=== PATIENT | female | born 1935 | race Caucasian/White ===

== ENCOUNTER 2017-03-24 22:59 | Emergency (ER) | payer MEDICARE, OTHER ==
[~2017-03-24] VITALS: Ht 152.4 cm; Wt 61.0 kg
[~2017-03-24 22:59] MED LIST: ALBU0.63 NEB; ALBUAER3 INH; ATEN25TA PO; BECL0.07 INH; CARA1SUS3 PO; CARB25TA12 PO; DOMPERIDONE PO; FOLI5CAP PO; FURO20TA PO; IPRASOL INH; LEVO50TA4 PO; LYRI100C PO; MECL25CH CHEW; MOTILIUM 10 MG PO; NITR1SUB3 SL; ONDA4TAB7 SL; POTA10TA2 PO; REGL5TAB PO; SUCR1TAB PO; TEMA15CA PO; TRAM50TA PO; WARF4TAB51 PO; ZOCO40TA PO
[2017-03-24 23:17] VITALS: BP 174/82; PULSE 68; RESP 16; TEMP 97.7; O2SAT 97
[2017-03-25] MEDS ORDERED: FOLI400T PO (01:19)
[2017-03-25] MEDS ORDERED: MECL-62 PO (01:19)
[2017-03-25] MEDS ORDERED: SODIUM CHLORIDE 0.9% FLUSH 10 ML FLUSH IV FLUSH PRN (01:30)
[2017-03-25 02:45] LABS: BLOOD, URINE LARGE (NEG); GLUCOSE,URINE NEG (NEG); KETONE, URINE NEG (NEG); NITRITE,URINE NEG (NEG); PH, URINE 6.5 (5.0-8.5)
[2017-03-25 02:54] LABS: RBC, URINE 15-19 /hpf (0-3); SQUAMOUS EPITHELIAL CELL URINE 0-5 /hpf (0-5); URINE COLOR YELLOW (YELLW/STRAW)
[2017-03-25 02:55] LABS: BACTERIA, URINE OCC /hpf; COMMENT (UR) CULT NOT INDICATED; CULTURE IF INDICATED CULT NOT INDICATED
[2017-03-25 03:04] LABS: AUTOMATED NEUTROPHIL # 4.9 TH/MM3 (1.8-7.7); BASOPHIL # 0.1 TH/MM3 (0-0.2); BASOPHIL % 2.2 % (0.0-2.0); EOSINOPHIL # 0.1 TH/MM3 (0-0.4); EOSINOPHIL % 1.7 % (0.0-4.0); HEMATOCRIT 35.3 % (35.0-46.0); HEMO FLAGS DIFF FINAL; LYMPH % 10.4 % (9.0-44.0); LYMPHOCYTE # 0.7 TH/MM3 (1.0-4.8); MEAN CELL VOLUME 97.8 FL (80.0-100.0); MEAN CORPUSCULAR HEMOGLOBIN 33.3 PG (27.0-34.0); MEAN CORPUSCULAR HGB CONC 34.1 % (32.0-36.0); MONO % 11.2 % (0.0-8.0); NEUT % 74.5 % (16.0-70.0); PLATELET COUNT 215 TH/MM3 (150-450); RED BLOOD COUNT 3.61 MIL/MM3 (4.00-5.30); RED CELL DISTRIBUTION WIDTH 12.3 % (11.6-17.2); WHITE BLOOD COUNT 6.5 TH/MM3 (4.0-11.0)
[2017-03-25 03:11] LABS: POTASSIUM 3.9 MEQ/L (3.5-5.1)
--- NOTE | 2017-03-25 03:26 | PD ---
HPI Chief Complaint: Complaint Time Seen by Provider: 01:26 Travel History International Travel<30 days: No Contact w/Intl Traveler<30days: No Traveled to known affect area: No History of Present Illness HPI 81 year-old female presents to the emergency department private transportation for complaint of one day of urinary frequency and suprapubic pain and pressure. Patient also reports history of diverticulitis. Patient denies fever or chills. No hematuria no flank pain. No diarrhea no melena or hematochezia. Patient denies any fever or chills or nausea or vomiting. No chest pain or shortness of breath. Patient reports suprapubic pressure as severe. Patient has taken no medications. Patient rates her pain as 10 over 10 in intensity. Patient is unable to identify exacerbating or alleviating factors. Patient has taken nothing for pain. PFSH Past Medical History Narrative Medical atrial fibrillation Coumadin therapy dyslipidemia CAD COPD CVA asthma hypertension; cholecystectomy hysterectomy appendectomy; no tobacco use: Nursing notes reviewed Hx Anticoagulant Therapy: Yes Asthma: Yes (COPD) Atrial Fibrillation: Yes Autoimmune Disease: No Blood Disorders: Yes (PT ON COUMADIN ) Anxiety: No Depression: No Heart Rhythm Problems: No Cancer: No Cardiac Catheterization: Yes (PTCA) Cardiovascular Problems: Yes High Cholesterol: Yes Chemotherapy: No Chest Pain: Yes Congestive Heart Failure: No COPD: Yes Cerebrovascular Accident: Yes Diabetes: No Diminished Hearing: No Deep Vein Thrombosis: Yes Endocrine: No Genitourinary: No Hiatal Hernia: Yes Heparin Induced Thrombocytopen: No Hypertension: Yes Immune Disorder: No Implanted Vascular Access Dvce: No Musculoskeletal: No Neurologic: Yes (PARKINSONS) Parkinson's Disease: Yes Psychiatric: No Reproductive: No Respiratory: Yes Immunizations Current: No Myocardial Infarction: Yes Radiation Therapy: No Shingles: Yes Sleep Apnea: No Thyroid Disease: Yes Tetanus Vaccination: > 5 Years Influenza Vaccination: Yes Menopausal: Yes Past Surgical History Abdominal Surgery: Yes (APPENDECTOMY, RENITA) Appendectomy: Yes Cardiac Surgery: No Cholecystectomy: Yes Eye Surgery: Yes (BILAT CATARACT SURGERY) Gynecologic Surgery: Yes (HYSTERECTOMY) Hysterectomy: Yes Pacemaker: No Tonsillectomy: Yes Other Surgery: Yes Family History Family Myocardial Infarction: Yes (MOM AT AGE 92 HAD A CARMEN) Social History Alcohol Use: Yes (2 GLASSES OF WINE FREQUENTLY) Tobacco Use: No (FORMER PPD X 35 YEARS, QUIT EARLY 80'S) Substance Use: No Allergies-Medications (Allergen,Severity, Reaction): Coded Allergies: erythromycin base (Unverified Allergy, Severe, itching and redness, ) latex (Unverified Allergy, Intermediate, ITCHING AND REDDNESS, 03/25/17) codeine (Unverified Adverse Reaction, Severe, Constipation, 03/25/17) *MDRO Multi-Drug Resistant Organism (Unverified Adverse Reaction, Unknown , 03/25/17) 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 Reported Meds & Prescriptions Reported Meds & Active Scripts Active Reported Meclizine (Meclizine HCl) 25 Mg Tab 25 Mg PO TID PRN Folic Acid 0.4 Mg Tab 5 Mg PO DAILY Warfarin 2 Mg Tab 2 Mg PO DAILY Tramadol (Tramadol HCl) 50 Mg Tab 50 Mg PO Q8H PRN Temazepam 15 Mg Cap 15 Mg PO HS PRN Sucralfate 1 Gm Tab 1 Gm PO TID on empty stomach Zocor (Simvastatin) 40 Mg Tab 40 Mg PO DAILY Qvar Inh (Beclomethasone Dipropionate) 40 Mcg/Act Aero 2 Puff INH BID Proair Hfa 8.5 GM Inh (Albuterol Sulfate) 90 Mcg/Act Aer 2 Puff INH Q4-6H PRN 108 mcg/actuation Potassium Chloride ER (Potassium Chloride) 10 Meq Tab 10 Meq PO TID Ondansetron Odt 4 Mg Tab 4 Mg SL Q8HR PRN Nitroglycerin SL (Nitroglycerin) 0.4 Mg Subl 0.4 Mg SL DIRECTED PRN ONE TABLET UNDER THE TONGUE NEEDED FOR CHEST PAIN, MAY REPEAT EVERY FIVE MINUTES FOR A TOTAL OF 3 DOSES OR CALL 911 IF NO RELIEF Lyrica (Pregabalin) 100 Mg Cap 100 Mg PO BID Levothyroxine (Levothyroxine Sodium) 50 Mcg Tab 50 Mcg PO DAILY Duoneb (Ipratropium-Albuterol Neb) 0.5-2.5 Mg/3 Ml Neb 1 Nebule INH Q6HR NEB Furosemide 20 Mg Tab 20 Mg PO DAILY Carbidopa-Levodopa 25-250 Mg Tab 1 Tab PO QID Carafate Liq (Sucralfate) 1 Gm/10 Ml Susp 1 Gm PO BID on empty stomach Atenolol 25 Mg Tab 25 Mg PO DAILY [Motilium 10MG] 10 Mg PO BID Review of Systems Except as stated in HPI: all other systems reviewed are Neg General / Constitutional: No: Fever, Chills HENT: No: Congestion Cardiovascular: No: Chest Pain or Discomfort Respiratory: No: Shortness of Breath Gastrointestinal: Positive: Diarrhea, Abdominal Pain, No: Nausea, Vomiting Genitourinary: Positive: Frequency, No: Dysuria, Pelvic Pain, Flank Pain Musculoskeletal: No: Myalgias, Arthralgias Skin: No Rash Neurologic: No: Weakness Psychiatric: No: Anxiety Endocrine: No: Heat Intolerance Hematologic/Lymphatic: No: Easy Bruising Physical Exam Narrative GENERAL: Well-developed well-nourished female in no acute distress no respiratory distress SKIN: Warm and dry. HEAD: Normocephalic. EYES: No scleral icterus. No injection or drainage. NECK: Supple, trachea midline. No JVD or lymphadenopathy. CARDIOVASCULAR: Regular rate and rhythm without murmurs, gallops, or rubs. RESPIRATORY: Breath sounds equal bilaterally. No accessory muscle use. GASTROINTESTINAL: Abdomen soft, bilateral lower quadrant suprapubic tenderness to palpation without guarding or rebound or palpable pulsatile mass nondistended. MUSCULOSKELETAL: No cyanosis, or edema. BACK: Nontender without obvious deformity. No CVA tenderness. Data Data Last Documented VS Vital Signs Date Time Temp Pulse Resp B/P (MAP) Pulse Ox O2 Delivery O2 Flow Rate FiO2 03/25/17 03:34 16 100 Room Air 03/24/17 23:17 97.7 68 Orders Orders Urinalysis - C+S If Indicated (03/25/17 01:08) Basic Metabolic Panel (Bmp) (03/25/17 01:26) Complete Blood Count With Diff (03/25/17 01:26) Ct Abd/Pel W Iv Contrast(Rout) (03/25/17 01:26) Iv Access Insert/Monitor (03/25/17 01:26) Ecg Monitoring (03/25/17 01:26) Oximetry (03/25/17 01:26) Sodium Chloride 0.9% Flush (Ns Flush) (03/25/17 01:30) Iohexol 350 Inj (Omnipaque 350 Inj) (03/25/17 03:30) Labs Laboratory Tests Test 03/25/17 02:37 03/25/17 02:50 Urine Color YELLOW Urine Turbidity CLEAR Urine pH 6.5 Urine Specific [place] 1.013 Urine Protein NEG mg/dL Urine Glucose (UA) NEG mg/dL Urine Ketones NEG mg/dL Urine Occult Blood LARGE Urine Nitrite NEG Urine Bilirubin NEG Urine Leukocyte Esterase SMALL Urine RBC 15-19 /hpf Urine WBC 3-5 /hpf Urine Squamous Epithelial Cells 0-5 /hpf Urine Bacteria OCC /hpf Microscopic Urinalysis Comment CULT NOT INDICATED White Blood Count 6.5 TH/MM3 Red Blood Count 3.61 MIL/MM3 Hemoglobin 12.0 GM/DL Hematocrit 35.3 % Mean Corpuscular Volume 97.8 FL Mean Corpuscular Hemoglobin 33.3 PG Mean Corpuscular Hemoglobin Concent 34.1 % Red Cell Distribution Width 12.3 % Platelet Count 215 TH/MM3 Mean Platelet Volume 6.6 FL Neutrophils (%) (Auto) 74.5 % Lymphocytes (%) (Auto) 10.4 % Monocytes (%) (Auto) 11.2 % Eosinophils (%) (Auto) 1.7 % Basophils (%) (Auto) 2.2 % Neutrophils # (Auto) 4.9 TH/MM3 Lymphocytes # (Auto) 0.7 TH/MM3 Monocytes # (Auto) 0.7 TH/MM3 Eosinophils # (Auto) 0.1 TH/MM3 Basophils # (Auto) 0.1 TH/MM3 CBC Comment DIFF FINAL Differential Comment Blood Urea Nitrogen 12 MG/DL Creatinine 0.70 MG/DL Random Glucose 101 MG/DL Calcium Level 8.7 MG/DL Sodium Level 131 MEQ/L Potassium Level 3.9 MEQ/L Chloride Level 96 MEQ/L Carbon Dioxide Level 28.0 MEQ/L Anion Gap 7 MEQ/L Estimat Glomerular Filtration Rate 80 ML/MIN [facility] Medical Decision Making Medical Screen Exam Complete: Yes Emergency Medical Condition: Yes Medical Record Reviewed: Yes Differential Diagnosis Dysuria UTI diverticulitis colitis ischemic colitis Narrative Course IV access obtained specimens collected and sent for resulting catheter urine specimen collected CBC is automated differential normal range white count elevation with left shift 74%; urinalysis catheter specimen positive white blood cells culture not indicated Chemistries grossly within normal limits CT imaging pending Diagnosis Primary Impression: Diverticulitis Referrals: Primary Care Physician 2 days Patient Instructions: General Instructions Additional Instructions: Complete course of antibiotic as prescribed Increase fluid hydration Follow soft diet for the first 12-24 hours then advance diet as tolerated gradually adding dietary fiber Take acetaminophen/Tylenol as needed for fever 100.4F or greater May take ibuprofen/Advil/Motrin every 6-8 hours for fever 100.4F or greater pain associated with inflammation for up to 1-2 days avoid prolong use Follow-up with your primary care provider Return to the emergency department for any concerns or change condition Med/Other Pt SpecificInfo: Prescription(s) given Scripts Ciprofloxacin (Cipro) 250 Mg Tab 250 MG PO BID for Infection for 7 Days, #14 TAB 0 Refills Prov: Priscila Mahmood MD 03/25/17 Metronidazole (Flagyl) 500 Mg Tab 500 MG PO QID for Infection for 7 Days, TAB 0 Refills Prov: Priscila Mahmood MD 03/25/17 Disposition: 01 DISCHARGE HOME Condition: Stable Priscila Mahmood MD Mar 25, 2017 03:26
[2017-03-25] MEDS ORDERED: IOHEXOL 350 MG/ML 10 ML VIAL (for RAD DIAG) IVCONTRAST ONE (03:30)
[2017-03-25 03:34] VITALS: RESP 16; O2SAT 100
--- NOTE | 2017-03-25 04:12 | RADRPT ---
EXAM DATE/TIME: 03/25/2017 03:29 [facility] COMPARISON: CT ABDOMEN & PELVIS W CONTRAST, May 29, 2014, 2:14. INDICATIONS : Low abdominal pain and difficulty urinating. IV CONTRAST: 77 cc Omnipaque 350 (iohexol) IV ORAL CONTRAST: No oral contrast ingested. RADIATION DOSE: 8.59 CTDIvol (mGy) MEDICAL HISTORY : Hernia, hiatal. Gastroesophageal reflux disease. Parkinsons.hypertension, COPD SURGICAL HISTORY : Hysterectomy. Appendectomy.Cholecystectomy. ENCOUNTER: Initial ACUITY: 1 day PAIN SCALE: 10/10 LOCATION: medial abdomen TECHNIQUE: Volumetric scanning of the abdomen and pelvis was performed. Using automated exposure control and ad justment of the mA and/or kV according to patient size, radiation dose was kept as low as reasonably achievable to obtain optimal diagnostic quality images. DICOM format image data is available electro nically for review and comparison. FINDINGS: LOWER LUNGS: The visualized lower lungs are clear. LIVER: Homogeneous density without lesion. There is no dilation of the biliary tree. Gallbladder is absent . SPLEEN: Normal size without lesion. PANCREAS: Within normal limits. KIDNEYS: Normal in size and shape. There is no mass, stone or hydronephrosis. ADRENAL GLANDS: Within normal limits. VASCULAR: There is no aortic aneurysm. There is severe atherosclerotic disease. BOWEL/MESENTERY: Multiple clips are present near the GE junction. A small bowel and proximal colon demonstrate no abno rmality. There is sigmoid diverticulosis. Mild inflammation is present surrounding the distal sigmoid colon. There is no free air free fluid. ABDOMINAL WALL: Within normal limits. RETROPERITONEUM: There is no lymphadenopathy. BLADDER: No wall thickening or mass. REPRODUCTIVE: The uterus is absent. INGUINAL: There is no lymphadenopathy or hernia. MUSCULOSKELETAL: There are degenerative changes of the lumbar spine. CONCLUSION: 1. Diverticulosis with wall thickening and inflammation adjacent to the distal sigmoid colon diagnost ic of mild acute diverticulitis. 2. Severe atherosclerotic disease. Ronni Quiñonez MD on March 25, 2017 at 4:07 Board Certified Radiologist. This report was verified electronically.
[2017-03-25] MEDS ORDERED: metroNIDAZOLE 500 MG TAB PO ONE ×2 (05:00→06:15)
[2017-03-25] MEDS ORDERED: SODIUM CHLORID 0.9% 500 ML INJ 500 ML IV ONE (05:00)
[2017-03-25] MEDS ORDERED: KETOROLAC TROMETHAMINE 30 MG/ML (IVP) VIAL IV PUSH ONE (05:00)
[2017-03-25] MEDS ORDERED: CIPROFLOXACIN 500 MG TAB PO ONE (05:00)
[2017-03-25] MEDS ORDERED: METR-1 PO (05:01)
[2017-03-25] MEDS ORDERED: CIPR250T52 PO (05:01)
[2017-03-25] MEDS ORDERED: PIPERACIL-TAZO 3.375 GM PREMIX 50 ML IV ONE (05:15)
[2017-03-25 05:50] LABS: INTERNATIONAL NORMALIZED RATIO 4.5 RATIO; PROTHROMBIN TIME - PATIENT 52.6 SEC (9.8-11.6)
[2017-03-25] MEDS ORDERED: CIPROFLOXACIN 250 MG TAB PO ONE (06:15)
[2017-03-25 06:49] VITALS: BP 115/82
== END 2017-03-25 06:49 | disposition home or self-care (01) ==
LOC: PHED 22:59
DX: K57.92 Diverticulitis of intestine, part unspecified, without perforation or abscess without bleeding (principal); R35.0 Frequency of micturition; I10 Essential (primary) hypertension; E07.9 Disorder of thyroid, unspecified; E78.00 Pure hypercholesterolemia, unspecified; G20 Parkinson's disease; I25.2 Old myocardial infarction; Z79.01 Long term (current) use of anticoagulants; Z87.19 Personal history of other diseases of the digestive system; Z87.09 Personal history of other diseases of the respiratory system; Z86.79 Personal history of other diseases of the circulatory system; Z86.718 Personal history of other venous thrombosis and embolism; Z86.69 Personal history of other diseases of the nervous system and sense organs; R10.9 Unspecified abdominal pain
CPT/HCPCS: 74177; 80048; 81001; 85025; 85610; 99284; Q9967

== ENCOUNTER 2017-05-21 13:07 | Observation (INO) | payer MEDICARE, OTHER ==
[2017-05-20 21:14] VITALS: O2SAT 94
[~2017-05-21 13:07] MED LIST changes: -ALBU0.63 NEB; +CIPR250T52 PO; -DOMPERIDONE PO; +FOLI400T PO; -FOLI5CAP PO; +MECL-62 PO; -MECL25CH CHEW; +METR-1 PO; -REGL5TAB PO
[2017-05-21 13:25] VITALS: BP 135/79; PULSE 82; RESP 18; TEMP 98.2; O2SAT 98
--- NOTE | 2017-05-21 14:35 | PD ---
HPI Chief Complaint: Fall Time Seen by Provider: 14:31 Travel History International Travel<30 days: No Contact w/Intl Traveler<30days: No Traveled to known affect area: No History of Present Illness HPI 81-year-old female patient on Coumadin presents to emergency department via EMS status post fall early this morning at 0400 hrs. She was evaluated earlier this morning by EMS and at that time refused transport. She fell trying to get up from her bed to her walker. As the day progressed the patient's pain got worse as well as her left knee swelling, so she was transported here via EMS for further evaluation. She is currently unable to bear weight on her left knee. Patient is noted to have increasing pain in the left lower extremity for the last 3 days according to her . There is a question of twisting injury to the left ankle several days ago while getting in and out of her car. She denies hitting her head or loss of consciousness. She denies any other injury. Pain is currently 8 out of 10. PFSH Past Medical History Hx Anticoagulant Therapy: Yes Asthma: Yes (COPD) Atrial Fibrillation: Yes Autoimmune Disease: No Blood Disorders: Yes (PT ON COUMADIN ) Anxiety: No Depression: No Heart Rhythm Problems: No Cancer: No Cardiac Catheterization: Yes (PTCA) Cardiovascular Problems: Yes High Cholesterol: Yes Chemotherapy: No Chest Pain: Yes Congestive Heart Failure: No COPD: Yes Cerebrovascular Accident: Yes Diabetes: No Diminished Hearing: No Deep Vein Thrombosis: Yes Endocrine: No Genitourinary: No Hiatal Hernia: Yes Heparin Induced Thrombocytopen: No Hypertension: Yes Immune Disorder: No Implanted Vascular Access Dvce: No Musculoskeletal: No Neurologic: Yes (PARKINSONS) Parkinson's Disease: Yes Psychiatric: No Reproductive: No Respiratory: Yes Immunizations Current: No Myocardial Infarction: Yes Radiation Therapy: No Shingles: Yes Sleep Apnea: No Thyroid Disease: Yes Menopausal: Yes Past Surgical History Abdominal Surgery: Yes (APPENDECTOMY, RENITA) Appendectomy: Yes Cardiac Surgery: No Cholecystectomy: Yes Eye Surgery: Yes (BILAT CATARACT SURGERY) Gynecologic Surgery: Yes (HYSTERECTOMY) Hysterectomy: Yes Pacemaker: No Tonsillectomy: Yes Other Surgery: Yes Social History Alcohol Use: Yes (2 GLASSES OF WINE FREQUENTLY) Tobacco Use: No (FORMER PPD X 35 YEARS, QUIT EARLY 'S) Substance Use: No Allergies-Medications (Allergen,Severity, Reaction): Coded Allergies: erythromycin base (Unverified Allergy, Severe, itching and redness, ) latex (Unverified Allergy, Intermediate, ITCHING AND REDDNESS, 03/25/17) codeine (Unverified Adverse Reaction, Severe, Constipation, 03/25/17) *MDRO Multi-Drug Resistant Organism (Unverified Adverse Reaction, Unknown , 03/25/17) 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 Reported Meds & Prescriptions Reported Meds & Active Scripts Active Reported Meclizine (Meclizine HCl) 25 Mg Tab 25 Mg PO TID PRN Folic Acid 0.4 Mg Tab 5 Mg PO DAILY Warfarin 2 Mg Tab 2 Mg PO DAILY Tramadol (Tramadol HCl) 50 Mg Tab 50 Mg PO Q8H PRN Temazepam 15 Mg Cap 15 Mg PO HS PRN Sucralfate 1 Gm Tab 1 Gm PO TID on empty stomach Zocor (Simvastatin) 40 Mg Tab 40 Mg PO DAILY Qvar Inh (Beclomethasone Dipropionate) 40 Mcg/Act Aero 2 Puff INH BID Proair Hfa 8.5 GM Inh (Albuterol Sulfate) 90 Mcg/Act Aer 2 Puff INH Q4-6H PRN 108 mcg/actuation Potassium Chloride ER (Potassium Chloride) 10 Meq Tab 10 Meq PO TID Ondansetron Odt 4 Mg Tab 4 Mg SL Q8HR PRN Nitroglycerin SL (Nitroglycerin) 0.4 Mg Subl 0.4 Mg SL DIRECTED PRN ONE TABLET UNDER THE TONGUE NEEDED FOR CHEST PAIN, MAY REPEAT EVERY FIVE MINUTES FOR A TOTAL OF 3 DOSES OR CALL 911 IF NO RELIEF Lyrica (Pregabalin) 100 Mg Cap 100 Mg PO BID Levothyroxine (Levothyroxine Sodium) 50 Mcg Tab 50 Mcg PO DAILY Duoneb (Ipratropium-Albuterol Neb) 0.5-2.5 Mg/3 Ml Neb 1 Nebule INH Q6HR NEB Furosemide 20 Mg Tab 20 Mg PO DAILY Carbidopa-Levodopa 25-250 Mg Tab 1 Tab PO QID Carafate Liq (Sucralfate) 1 Gm/10 Ml Susp 1 Gm PO BID on empty stomach Atenolol 25 Mg Tab 25 Mg PO DAILY [Motilium 10MG] 10 Mg PO BID Review of Systems Except as stated in HPI: all other systems reviewed are Neg General / Constitutional: No: Fever Eyes: No: Visual changes HENT: No: Headaches Cardiovascular: No: Chest Pain or Discomfort Respiratory: No: Shortness of Breath Gastrointestinal: No: Abdominal Pain Genitourinary: No: Dysuria Musculoskeletal: Positive: Arthralgias, Limited ROM, Pain Skin: No Rash Neurologic: No: Weakness Psychiatric: No: Depression Endocrine: No: Polydipsia Hematologic/Lymphatic: No: Easy Bruising Physical Exam Narrative GENERAL: Patient appears in mild to moderate distress. SKIN: Warm and dry. Normal color. Normal turgor. Patient has old bruising to the left lateral upper phan. HEAD: Atraumatic. Normocephalic. EYES: Pupils equal and round. No scleral icterus. No injection or drainage. ENT: No nasal bleeding or discharge. Mucous membranes pink and moist. Pharynx is clear. Airway is patent NECK: Trachea midline. No bony tenderness or step-off. Range of motion is full and supple. CARDIOVASCULAR: Regular rate and rhythm. RESPIRATORY: No accessory muscle use. Clear to auscultation. Breath sounds equal bilaterally. GASTROINTESTINAL: Abdomen soft, non-tender, nondistended. Hepatic and splenic margins not palpable. MUSCULOSKELETAL: Extremities without clubbing, cyanosis, or edema. No obvious deformities. The knee has no obvious deformity or effusion. No bruising specifically on the knee. Patient doesn't tenderness with palpation of the upper tibia region more on the lateral joint line. No obvious laxity is noted. Patient has complaints of pain with palpation along the lateral phan and left lateral ankle. Patient also complains of pain in the left foot as well. This is all new for the past 3 days according to the . NEUROLOGICAL: Awake and alert. No obvious cranial nerve deficits. Motor grossly within normal limits. Five out of 5 muscle strength in the arms and legs. Normal speech. PSYCHIATRIC: Appropriate mood and affect; insight and judgment normal. Data Data Last Documented VS Vital Signs Date Time Temp Pulse Resp B/P (MAP) Pulse Ox O2 Delivery O2 Flow Rate FiO2 05/21/17 16:52 99 18 124/58 (80) 94 Room Air 05/21/17 15:29 2.00 05/21/17 13:25 98.2 Orders Orders Electrocardiogram (05/21/17 13:39) Complete Blood Count With Diff (05/21/17 13:39) Comprehensive Metabolic Panel (05/21/17 13:39) Iv Access Insert/Monitor (05/21/17 13:39) Urinalysis - C+S If Indicated (05/21/17 13:39) Knee, Complete (4vws) (05/21/17 ) Prothrombin Time / Inr (Pt) (05/21/17 14:18) Ankle, Complete ([id number]) (05/21/17 15:18) Tibia/Fibula (Ap/Lat) (05/21/17 15:18) Ecg Monitoring (05/21/17 15:18) Oximetry (05/21/17 15:18) Ondansetron Inj (Zofran Inj) (05/21/17 15:30) Sodium Chloride 0.9% Flush (Ns Flush) (05/21/17 15:30) Morphine Inj (Morphine Inj) (05/21/17 15:30) Us Leg Venous Doppler (05/21/17 15:31) Isolation 08,20 (05/21/17 16:18) Labs Laboratory Tests Test 05/21/17 13:00 White Blood Count 6.1 TH/MM3 Red Blood Count 4.03 MIL/MM3 Hemoglobin 13.3 GM/DL Hematocrit 38.9 % Mean Corpuscular Volume 96.5 FL Mean Corpuscular Hemoglobin 33.1 PG Mean Corpuscular Hemoglobin Concent 34.3 % Red Cell Distribution Width 15.3 % Platelet Count 178 TH/MM3 Mean Platelet Volume 6.2 FL Neutrophils (%) (Auto) 84.9 % Lymphocytes (%) (Auto) 5.7 % Monocytes (%) (Auto) 7.2 % Eosinophils (%) (Auto) 1.6 % Basophils (%) (Auto) 0.6 % Neutrophils # (Auto) 5.2 TH/MM3 Lymphocytes # (Auto) 0.4 TH/MM3 Monocytes # (Auto) 0.4 TH/MM3 Eosinophils # (Auto) 0.1 TH/MM3 Basophils # (Auto) 0.0 TH/MM3 CBC Comment DIFF FINAL Differential Comment Prothrombin Time 32.3 SEC Prothromb Time International Ratio 3.2 RATIO Urine Color LIGHT-YELLOW Urine Turbidity CLEAR Urine pH 7.0 Urine Specific [place] 1.008 Urine Protein NEG mg/dL Urine Glucose (UA) NEG mg/dL Urine Ketones NEG mg/dL Urine Occult Blood NEG Urine Nitrite NEG Urine Bilirubin NEG Urine Urobilinogen LESS THAN 2.0 MG/DL Urine Leukocyte Esterase SMALL Urine RBC 3 /hpf Urine WBC 2 /hpf Urine Squamous Epithelial Cells <1 /hpf Urine Bacteria OCC /hpf Microscopic Urinalysis Comment CULT NOT INDICATED Blood Urea Nitrogen 8 MG/DL Creatinine 0.41 MG/DL Random Glucose 88 MG/DL Total Protein 6.3 GM/DL Albumin 2.7 GM/DL Calcium Level 8.3 MG/DL Alkaline Phosphatase 77 U/L Aspartate Amino Transf (AST/SGOT) 29 U/L Alanine Aminotransferase (ALT/SGPT) 26 U/L Total Bilirubin 0.7 MG/DL Sodium Level 136 MEQ/L Potassium Level 4.1 MEQ/L Chloride Level 101 MEQ/L Carbon Dioxide Level 27.8 MEQ/L Anion Gap 7 MEQ/L Estimat Glomerular Filtration Rate 148 ML/MIN [facility] Medical Decision Making Medical Screen Exam Complete: Yes Emergency Medical Condition: Yes Medical Record Reviewed: Yes Differential Diagnosis Left knee pain. Left phan pain. Fracture. DVT. Narrative Course Patient is in pain but medically stable at time of exam. Labs ordered including CBC, CMP, and coagulation studies. X-rays of left knee are ordered. Additional x-rays of the left tib-fib and ankle are ordered. IV access is obtained and patient is given 4 mg Zofran 2 mg morphine IV. CBC is unremarkable. Coagulation studies shows INR 3.2 with a PTT of 32.3. Chemistry is unremarkable. Urinalysis is unremarkable. Lower extremity ultrasound is negative for acute process. X-rays of the knee, tib-fib, and ankle are all negative for fracture dislocation. Patient discussed with Dr. Burks, feels a CT of the lower extremity would be warranted, and admission for observation and orthopedic and PT eval. Call was placed to the hospitalist for admission. Diagnosis Primary Impression: Intractable pain Additional Impressions: Unable to ambulate Left knee pain Qualified Codes: M25.562 - Pain in left knee Acute left ankle pain Left foot pain Admitting Information Admitting Physician Requests: Observation Condition: Stable Leobardo Collazo May 21, 2017 14:35
[2017-05-21 14:51] LABS: AUTOMATED NEUTROPHIL # 5.2 TH/MM3 (1.8-7.7); BASOPHIL % 0.6 % (0.0-2.0); EOSINOPHIL # 0.1 TH/MM3 (0-0.4); EOSINOPHIL % 1.6 % (0.0-4.0); HEMATOCRIT 38.9 % (35.0-46.0); HEMOGLOBIN 13.3 GM/DL (11.6-15.3); LYMPH % 5.7 % (9.0-44.0); LYMPHOCYTE # 0.4 TH/MM3 (1.0-4.8); MEAN CELL VOLUME 96.5 FL (80.0-100.0); MEAN CORPUSCULAR HEMOGLOBIN 33.1 PG (27.0-34.0); MEAN CORPUSCULAR HGB CONC 34.3 % (32.0-36.0); MEAN PLATELET VOLUME 6.2 FL (7.0-11.0); MONO % 7.2 % (0.0-8.0); MONOCYTE # 0.4 TH/MM3 (0-0.9); NEUT % 84.9 % (16.0-70.0); PLATELET COUNT 178 TH/MM3 (150-450); RED BLOOD COUNT 4.03 MIL/MM3 (4.00-5.30); RED CELL DISTRIBUTION WIDTH 15.3 % (11.6-17.2); WHITE BLOOD COUNT 6.1 TH/MM3 (4.0-11.0)
[2017-05-21 15:08] LABS: ALKALINE PHOSPHATASE 77 U/L (45-117); TOTAL BILIRUBIN ADULT 0.7 MG/DL (0.2-1.0); TOTAL PROTEIN 6.3 GM/DL (6.4-8.2)
--- NOTE | 2017-05-21 15:17 | RADRPT ---
EXAM DATE/TIME: 05/21/2017 14:28 [facility] COMPARISON: No previous studies available for comparison. INDICATIONS : Left Knee pain, post fall MEDICAL HISTORY : Hernia, hiatal. Gastroesophageal reflux disease. Parkinsons.hypertension, COPD SURGICAL HISTORY : Hysterectomy. Appendectomy.Cholecystectomy. ENCOUNTER: Initial ACUITY: 1 day PAIN SCORE: 9/10 LOCATION: Left Knee FINDINGS: 6 views of left knee. Diffuse bone demineralization. Chondrocalcinosis of the lateral meniscus. Small joint effusion. Minimal medial compartment narrowing. Bone alignment within normal limits. No evide nce of fracture. CONCLUSION: No evidence of fracture. Mild arthritic findings with mild medial compartment narrowing. Small joint effusion. Naveed Wilks MD on May 21, 2017 at 15:13 Board Certified Radiologist. This report was verified electronically.
[2017-05-21 15:18] LABS: ALBUMIN 2.7 GM/DL (3.4-5.0); ALT (GPT) 26 U/L (10-53); AST (GOT) 29 U/L (15-37); BICARBONATE 27.8 MEQ/L (21.0-32.0); BLOOD UREA NITROGEN 8 MG/DL (7-18); CALCIUM 8.3 MG/DL (8.5-10.1); CHLORIDE 101 MEQ/L (98-107); CREATININE 0.41 MG/DL (0.50-1.00); GLOMERULAR FILTRATION RATE 148 ML/MIN (>89); GLUCOSE,RANDOM 88 MG/DL (74-106); SODIUM (NA) 136 MEQ/L (136-145)
[2017-05-21 15:29] VITALS: O2SAT 97
[2017-05-21 15:29] LABS: BACTERIA, URINE OCC /hpf; BILIRUBIN, URINE NEG (NEG); BLOOD, URINE NEG (NEG); GLUCOSE,URINE NEG (NEG); KETONE, URINE NEG (NEG); NITRITE,URINE NEG (NEG); SQUAMOUS EPITHELIAL CELL URINE <1 /hpf (0-5); URINE COLOR LIGHT-YELLOW (YELLW/STRAW); URINE LEUKOCYTE ESTERASE SMALL (NEG)
[2017-05-21] MEDS ORDERED: ONDANSETRON HCL 4 MG/2 ML VIAL IVP ONE (15:30)
[2017-05-21] MEDS ORDERED: MORPHINE SULFATE 2 MG/ML INJ IV PUSH ONE (15:30)
[2017-05-21] MEDS ORDERED: SODIUM CHLORIDE 0.9% FLUSH 10 ML FLUSH IV FLUSH PRN ×2 (15:30→17:45)
[2017-05-21 15:32] VITALS: BP 138/79; PULSE 83; RESP 18; O2SAT 100
[2017-05-21 15:51] LABS: INTERNATIONAL NORMALIZED RATIO 3.2 RATIO; PROTHROMBIN TIME - PATIENT 32.3 SEC (9.8-11.6)
--- NOTE | 2017-05-21 16:38 | RADRPT ---
EXAM DATE/TIME: 05/21/2017 15:44 [facility] COMPARISON: No previous studies available for comparison. INDICATIONS : Pain post fall. MEDICAL HISTORY : Hernia, hiatal. Gastroesophageal reflux disease. Parkinsons.hypertension, COPD. SURGICAL HISTORY : Hysterectomy. Appendectomy.Cholecystectomy. ENCOUNTER: Initial ACUITY: 1 day PAIN SCORE: 10/10 LOCATION: Left Ankle. FINDINGS: 3 views left ankle. Bone alignment within normal limits. No evidence of fracture. Diffuse bone demin eralization. Ankle mortise intact. CONCLUSION: No evidence of fracture. Naveed Wilks MD on May 21, 2017 at 16:34 Board Certified Radiologist. This report was verified electronically.
--- NOTE | 2017-05-21 16:50 | RADRPT ---
EXAM DATE/TIME: 05/21/2017 15:36 [facility] COMPARISON: KNEE LEFT COMPLETE (4VWS), May 21, 2017, 14:28. INDICATIONS : Pain post fall. MEDICAL HISTORY : Hernia, hiatal. Gastroesophageal reflux disease. Parkinsons.hypertension, COPD. SURGICAL HISTORY : Hysterectomy. Appendectomy.Cholecystectomy. ENCOUNTER: Initial ACUITY: 1 day PAIN SCORE: 10/10 LOCATION: Left Lower leg. FINDINGS: Bones are osteopenic. I don't see a fracture. Mild soft tissue swelling laterally of the upper leg. R adiographic appearance of the soft tissues otherwise within normal limits. No radiopaque foreign body . CONCLUSION: Intact left tibia and fibula. Ronni Nunez MD on May 21, 2017 at 16:47 Board Certified Radiologist. This report was verified electronically.
--- NOTE | 2017-05-21 16:51 | RADRPT ---
EXAM DATE/TIME: 05/21/2017 15:55 [facility] COMPARISON: No previous studies available for comparison. INDICATIONS : Left leg pain. MEDICAL HISTORY : Stroke. Parkinson's. Myocardial infarction. Thyroid disease. Glasses. Coronary artery disease. Hyp ercholesterolemia. Chest pain. Hypertension. Atrial fibrillation. COPD. Asthma. Dyspnea. Gastroesopha geal reflux disease. Blood disease. Anemia. Shingles. SURGICAL HISTORY : Tonsillectomy. Appendectomy. Hysterectomy. Cataract surgery. Cholecystectomy. ENCOUNTER: Subsequent ACUITY: 2 day PAIN SCORE: 5/10 LOCATION: Left leg. TECHNIQUE: Venous ultrasound of the leg was performed from the inguinal ligament to the proximal calf. Real-monserrat e, color Doppler and spectral tracing, compression and augmentation techniques were used. FINDINGS: There is normal compressibility of the deep venous system from the inguinal region to the proximal ca lf. No echogenic clot is seen in the lumen of the common femoral, femoral, popliteal, and posterior tibial veins. There is a normal response of the venous system to proximal and distal augmentation an d respiration. CONCLUSION: Negative. No venous thrombosis of the left lower extremity. Ronni Nunez MD on May 21, 2017 at 16:48 Board Certified Radiologist. This report was verified electronically.
[2017-05-21 16:52] VITALS: BP 124/58; PULSE 99; RESP 18; O2SAT 94
[2017-05-21] MEDS ORDERED: RESP: ALBUTEROL 2.5 MG/IPRATROPIUM 0.5 MG NEB (PRN) NEB (17:45)
[2017-05-21] MEDS ORDERED: MAGNESIUM HYDROXIDE SUSP 30 ML CUP PO PRN (17:45)
[2017-05-21] MEDS ORDERED: NALOXONE HCL 0.4 MG/ML AMP IV PUSH PRN (17:45)
[2017-05-21] MEDS ORDERED: NITROGLYCERIN 0.4 MG SL 25 TABS/BTL SL PRN (17:45)
[2017-05-21] MEDS ORDERED: ONDANSETRON ODT 4 MG TAB SL PRN (17:45)
[2017-05-21] MEDS ORDERED: ACETAMINOPHEN 325 MG TAB PO PRN (17:45)
[2017-05-21] MEDS ORDERED: MORPHINE SULFATE 8 MG/ML INJ IV PUSH PRN (17:45)
[2017-05-21] MEDS ORDERED: ONDANSETRON HCL 4 MG/2 ML VIAL IVP PRN (17:45)
[2017-05-21] MEDS ORDERED: BISACODYL 10 MG SUPP RECTAL PRN (17:45)
[2017-05-21] MEDS ORDERED: SENNOSIDES 8.6 MG TAB PO PRN (17:45)
[2017-05-21] MEDS ORDERED: LACTULOSE SYRUP 20 GM/30 ML CUP PO PRN (17:45)
--- NOTE | 2017-05-21 17:46 | RADRPT ---
EXAM DATE/TIME: 05/21/2017 17:20 [facility] COMPARISON: TIBIA/FIBULA LEFT (AP/LAT), May 21, 2017, 15:36. INDICATIONS : Fell today knee pain and unable to bear weight. RADIATION DOSE: 7.29 CTDIvol (mGy) MEDICAL HISTORY : Cerebrovascular disease. Parkinsons. Cardiovascular diseaseHTN, Afib DVT,GERD SURGICAL HISTORY : Appendectomy. Cholecystectomy. Hysterectomy. ENCOUNTER: Initial ACUITY: 1 day PAIN SCALE: 10/10 LOCATION: Left Knee TECHNIQUE: Volumetric scanning of the tibia and fibula was performed. Using automated exposure control and adju stment of the mA and/or kV according to patient size, radiation dose was kept as low as reasonably ac hievable to obtain optimal diagnostic quality images. DICOM format image data is available [facility] for review and comparison. FINDINGS: No evidence of fracture. No evidence of joint effusion. Diffuse bone demineralization. Diffuse arteri al calcification. No evidence of joint narrowing. CONCLUSION: No evidence of fracture. Naveed Wilks MD on May 21, 2017 at 17:39 Board Certified Radiologist. This report was verified electronically.
--- NOTE | 2017-05-21 17:53 | PD ---
Physical Exam Narrative GENERAL: Well-nourished, well-developed patient. SKIN: Warm and dry. HEAD: Normocephalic and atraumatic. EYES: No injection or drainage. ENT: No nasal drainage noted. NECK: Supple, trachea midline. RESPIRATORY: No increased effort. No accessory muscle use. GASTROINTESTINAL: Abdomen soft, nondistended. EXTREMITIES: Pain with palpation of left lower leg with ecchymosis, no pain with other joints , neurovascularly intact, no lacerations over, compartments soft. NEUROLOGICAL: Awake. Moves all extremities and sensory grossly within normal limits. Normal speech. Data Data Last Documented VS Vital Signs Date Time Temp Pulse Resp B/P (MAP) Pulse Ox O2 Delivery O2 Flow Rate FiO2 05/21/17 16:52 99 18 124/58 (80) 94 Room Air 05/21/17 15:29 2.00 05/21/17 13:25 98.2 Orders Orders Electrocardiogram (05/21/17 13:39) Complete Blood Count With Diff (05/21/17 13:39) Comprehensive Metabolic Panel (05/21/17 13:39) Iv Access Insert/Monitor (05/21/17 13:39) Urinalysis - C+S If Indicated (05/21/17 13:39) Knee, Complete (4vws) (05/21/17 ) Prothrombin Time / Inr (Pt) (05/21/17 14:18) Ankle, Complete (Aga8rzt) (05/21/17 15:18) Tibia/Fibula (Ap/Lat) (05/21/17 15:18) Ecg Monitoring (05/21/17 15:18) Oximetry (05/21/17 15:18) Ondansetron Inj (Zofran Inj) (05/21/17 15:30) Sodium Chloride 0.9% Flush (Ns Flush) (05/21/17 15:30) Morphine Inj (Morphine Inj) (05/21/17 15:30) Us Leg Venous Doppler (05/21/17 15:31) Isolation 20 (05/21/17 16:18) Ct Tib/Fib W/O Iv Contrast (05/21/17 ) Admit Order (Ed Use Only) (05/21/17 17:28) Labs Laboratory Tests Test 05/21/17 13:00 White Blood Count 6.1 TH/MM3 Red Blood Count 4.03 MIL/MM3 Hemoglobin 13.3 GM/DL Hematocrit 38.9 % Mean Corpuscular Volume 96.5 FL Mean Corpuscular Hemoglobin 33.1 PG Mean Corpuscular Hemoglobin Concent 34.3 % Red Cell Distribution Width 15.3 % Platelet Count 178 TH/MM3 Mean Platelet Volume 6.2 FL Neutrophils (%) (Auto) 84.9 % Lymphocytes (%) (Auto) 5.7 % Monocytes (%) (Auto) 7.2 % Eosinophils (%) (Auto) 1.6 % Basophils (%) (Auto) 0.6 % Neutrophils # (Auto) 5.2 TH/MM3 Lymphocytes # (Auto) 0.4 TH/MM3 Monocytes # (Auto) 0.4 TH/MM3 Eosinophils # (Auto) 0.1 TH/MM3 Basophils # (Auto) 0.0 TH/MM3 CBC Comment DIFF FINAL Differential Comment Prothrombin Time 32.3 SEC Prothromb Time International Ratio 3.2 RATIO Urine Color LIGHT-YELLOW Urine Turbidity CLEAR Urine pH 7.0 Urine Specific [place] 1.008 Urine Protein NEG mg/dL Urine Glucose (UA) NEG mg/dL Urine Ketones NEG mg/dL Urine Occult Blood NEG Urine Nitrite NEG Urine Bilirubin NEG Urine Urobilinogen LESS THAN 2.0 MG/DL Urine Leukocyte Esterase SMALL Urine RBC 3 /hpf Urine WBC 2 /hpf Urine Squamous Epithelial Cells <1 /hpf Urine Bacteria OCC /hpf Microscopic Urinalysis Comment CULT NOT INDICATED Blood Urea Nitrogen 8 MG/DL Creatinine 0.41 MG/DL Random Glucose 88 MG/DL Total Protein 6.3 GM/DL Albumin 2.7 GM/DL Calcium Level 8.3 MG/DL Alkaline Phosphatase 77 U/L Aspartate Amino Transf (AST/SGOT) 29 U/L Alanine Aminotransferase (ALT/SGPT) 26 U/L Total Bilirubin 0.7 MG/DL Sodium Level 136 MEQ/L Potassium Level 4.1 MEQ/L Chloride Level 101 MEQ/L Carbon Dioxide Level 27.8 MEQ/L Anion Gap 7 MEQ/L Estimat Glomerular Filtration Rate 148 ML/MIN MDM Supervised Visit with LISETTE: Yes Interpretation(s) CBC & BMP Diagram 05/21/17 13:00 Total Protein 6.3 L, Albumin 2.7 L, Calcium Level 8.3 L, Alkaline Phosphatase 77 , Aspartate Amino Transf (AST/SGOT) 29, Alanine Aminotransferase (ALT/SGPT) 26, Total Bilirubin 0.7 Last 24 hours Impressions Lower Extremity Ultrasound 05/21/17 1531 Signed Impressions: Service Date/Time: Sunday, May 21, 2017 15:55 - CONCLUSION: Negative. No venous thrombosis of the left lower extremity. Ronni Nunez MD Tibia/Fibula X-Ray 05/21/17 1518 Signed Impressions: Service Date/Time: Sunday, May 21, 2017 15:36 - CONCLUSION: Intact left tibia and fibula. Ronni Nunez MD Ankle X-Ray 05/21/17 1518 Signed Impressions: Service Date/Time: Sunday, May 21, 2017 15:44 - CONCLUSION: No evidence of fracture. Naveed Wilks MD Knee X-Ray 05/21/17 0000 Signed Impressions: Service Date/Time: Sunday, May 21, 2017 14:28 - CONCLUSION: No evidence of fracture. Mild arthritic findings with mild medial compartment narrowing. Small joint effusion. Naveed Wilks MD Narrative Course I, Dr. burks, have reviewed the advance practice practitioner's documentation and am in agreement, met with the patient face to face, made the diagnosis, and the medical decision making was done by me. *My assessment and Findings: 81-year-old female presents after she had a fall. She is having persistent left leg pain and unable to ambulate. She is therapeutic on her Coumadin. She'll be monitored in the hospital to check for delayed bleed and for further care Physician Communication Physician Communication Dr. Mills agrees to observation Diagnosis Primary Impression: Intractable pain Additional Impressions: Acute left ankle pain Left knee pain Qualified Codes: M25.562 - Pain in left knee Left foot pain Unable to ambulate Anticoagulated on Coumadin Admitting Information Admitting Physician Requests: Observation Condition: Stable Carol Burks MD May 21, 2017 17:53
[2017-05-21] MEDS: CARBIDOPA/LEVODOPA 25 MG/250 MG TAB PO SCH ×2 (18:00→21:59)
[2017-05-21] MEDS: SUCRALFATE 1 GM TAB PO SCH (18:00)
[2017-05-21] MEDS: SODIUM CHLOR 0.9% 1000 ML INJ 1,000 ML IV SCH (18:09)
[2017-05-21] MEDS: POTASSIUM CHLORIDE 10 MEQ CONTROLLED RELEASE TAB PO SCH (18:10)
[2017-05-21 20:33] VITALS: BP 138/72; PULSE 68; RESP 18; TEMP 98; O2SAT 95
[2017-05-21] MEDS: SODIUM CHLORIDE 0.9% FLUSH 10 ML FLUSH IV FLUSH SCH (21:00)
[2017-05-21] MEDS: SUCRALFATE 1 GM/10 ML CUP PO SCH (21:08)
--- NOTE | 2017-05-21 21:08 | HHI.HP ---
HPI Service [facility] Primary Care Physician José Miguel Gould, DO Admission Diagnosis fall, coumadin use, left leg pain Diagnoses: (1) Left knee pain (2) Fall Chief Complaint: Fall at home; left knee/phan/foot pain with inability to bear weight Travel History International Travel<30 Days: No Contact w/Intl Traveler <30 Da: No Traveled to Known Affected Are: No History of Present Illness Mrs. Cormier is a pleasant 81-year-old female with a history of COPD, atrial fibrillation on Coumadin, coronary artery disease status post PTCA in the 1980s , hyperlipidemia, DVT, hiatal hernia, hypertension, Parkinson's disease, and hypothyroidism who presented to the emergency room on 05/21/2017 after a fall at home resulted in severe left leg pain with inability to bear weight/ambulate. The patient was admitted for observation following negative imaging for physical therapy evaluation. The patient is seen in the CDU. She states she was getting up to the bathroom when her left knee gave out and she collapsed to the floor on her left side. She denies hitting her head or losing consciousness. She states immediately afterwards, she was unable to bear weight on the left leg. She reports she's been having problems over the past week with the left knee being painful but this was her first fall. Her knee pain is severe and located in the posterior aspect of the knee and is accompanied by left phan and foot pain. Ankle and tibia and fibula x-rays were negative in the emergency room. Left knee x-ray showed mild arthritic findings; mild medial compartment narrowing; small joint effusion. A lower extremity CT was performed and was negative for evidence of fracture. Review of Systems Except as stated in HPI: all other systems reviewed are Neg Past Family Social History Past Medical History COPD Atrial fibrillation on Coumadin DVT right leg 2, left leg 1 CAD status post PTCA in the 80s Hyperlipidemia Hiatal hernia Hypertension Parkinson's disease IA 2 Hypothyroidism . Past Surgical History Appendectomy Cholecystectomy Right shoulder repair Bilateral cataract surgery Hysterectomy Tonsillectomy . Reported Medications Reported Meds & Active Scripts Active Reported Meclizine (Meclizine HCl) 25 Mg Tab 25 Mg PO TID PRN Folic Acid 0.4 Mg Tab 5 Mg PO DAILY Warfarin 2 Mg Tab 2 Mg PO DAILY Tramadol (Tramadol HCl) 50 Mg Tab 50 Mg PO Q8H PRN Temazepam 15 Mg Cap 15 Mg PO HS PRN Sucralfate 1 Gm Tab 1 Gm PO TID on empty stomach Zocor (Simvastatin) 40 Mg Tab 40 Mg PO DAILY Qvar Inh (Beclomethasone Dipropionate) 40 Mcg/Act Aero 2 Puff INH BID Proair Hfa 8.5 GM Inh (Albuterol Sulfate) 90 Mcg/Act Aer 2 Puff INH Q4-6H PRN 108 mcg/actuation Potassium Chloride ER (Potassium Chloride) 10 Meq Tab 10 Meq PO TID Ondansetron Odt 4 Mg Tab 4 Mg SL Q8HR PRN Nitroglycerin SL (Nitroglycerin) 0.4 Mg Subl 0.4 Mg SL DIRECTED PRN ONE TABLET UNDER THE TONGUE NEEDED FOR CHEST PAIN, MAY REPEAT EVERY FIVE MINUTES FOR A TOTAL OF 3 DOSES OR CALL 911 IF NO RELIEF Lyrica (Pregabalin) 100 Mg Cap 100 Mg PO BID Levothyroxine (Levothyroxine Sodium) 50 Mcg Tab 50 Mcg PO DAILY Duoneb (Ipratropium-Albuterol Neb) 0.5-2.5 Mg/3 Ml Neb 1 Nebule INH Q6HR NEB Furosemide 20 Mg Tab 20 Mg PO DAILY Carbidopa-Levodopa 25-250 Mg Tab 1 Tab PO QID Carafate Liq (Sucralfate) 1 Gm/10 Ml Susp 1 Gm PO BID on empty stomach Atenolol 25 Mg Tab 25 Mg PO DAILY [Motilium 10MG] 10 Mg PO BID . 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 Social History Tobacco: Remote history of smoking; quit in the early 80s after smoking for about 35 years. She states one pack of cigarettes would last about a week. Alcohol: Drinks 2 glasses of wine daily Former educational assistant teacher . Physical Exam Vital Signs Vital Signs Date Time Temp Pulse Resp B/P (MAP) Pulse Ox O2 Delivery O2 Flow Rate FiO2 05/21/17 20:33 98.0 68 18 138/72 (94) 95 05/21/17 18:31 05/21/17 16:52 99 18 124/58 (80) 94 Room Air 05/21/17 15:32 83 18 138/79 (98) 100 05/21/17 15:29 97 Nasal Cannula 2.00 05/21/17 15:15 18 99 Room Air 05/21/17 13:25 98.2 82 18 135/79 (97) 98 Physical Exam GENERAL: This is an elderly female patient, in no apparent distress. SKIN: No rashes. Cool and dry. Bruising noted to left phan and dorsal surface of left foot. HEAD: Atraumatic. Normocephalic. EYES: No scleral icterus. No injection or drainage. ENT: Nose without bleeding, purulent drainage. NECK: Trachea midline. No JVD or lymphadenopathy. CARDIOVASCULAR: Regular rate and rhythm without murmurs, gallops, or rubs. RESPIRATORY: Congested cough noted throughout visit. Breath sounds with fine moist rhonchi scattered bilaterally. No wheezes, rales. GASTROINTESTINAL: Abdomen soft, non-tender, nondistended. No guarding. MUSCULOSKELETAL: Extremities without clubbing, cyanosis. No calf tenderness. Left knee tender to palpation behind the knee; left phan tender to palpation. No significant swelling noted. NEUROLOGICAL: Awake and alert. Motor and sensory grossly within normal limits. Normal speech. . Laboratory Laboratory Tests Test 05/21/17 13:00 White Blood Count 6.1 Red Blood Count 4.03 Hemoglobin 13.3 Hematocrit 38.9 Mean Corpuscular Volume 96.5 Mean Corpuscular Hemoglobin 33.1 Mean Corpuscular Hemoglobin Concent 34.3 Red Cell Distribution Width 15.3 Platelet Count 178 Mean Platelet Volume 6.2 Neutrophils (%) (Auto) 84.9 Lymphocytes (%) (Auto) 5.7 Monocytes (%) (Auto) 7.2 Eosinophils (%) (Auto) 1.6 Basophils (%) (Auto) 0.6 Neutrophils # (Auto) 5.2 Lymphocytes # (Auto) 0.4 Monocytes # (Auto) 0.4 Eosinophils # (Auto) 0.1 Basophils # (Auto) 0.0 CBC Comment DIFF FINAL Differential Comment Prothrombin Time 32.3 Prothromb Time International Ratio 3.2 Urine Color LIGHT-YELLOW Urine Turbidity CLEAR Urine pH 7.0 Urine Specific [place] 1.008 Urine Protein NEG Urine Glucose (UA) NEG Urine Ketones NEG Urine Occult Blood NEG Urine Nitrite NEG Urine Bilirubin NEG Urine Urobilinogen LESS THAN 2.0 Urine Leukocyte Esterase SMALL Urine RBC 3 Urine WBC 2 Urine Squamous Epithelial Cells <1 Urine Bacteria OCC Microscopic Urinalysis Comment CULT NOT INDICATED Blood Urea Nitrogen 8 Creatinine 0.41 Random Glucose 88 Total Protein 6.3 Albumin 2.7 Calcium Level 8.3 Alkaline Phosphatase 77 Aspartate Amino Transf (AST/SGOT) 29 Alanine Aminotransferase (ALT/SGPT) 26 Total Bilirubin 0.7 Sodium Level 136 Potassium Level 4.1 Chloride Level 101 Carbon Dioxide Level 27.8 Anion Gap 7 Estimat Glomerular Filtration Rate 148 Result Diagram: 05/21/17 1300 05/21/17 1300 Imaging Last Impressions Lower Extremity Ultrasound 05/21/17 1531 Signed Impressions: Service Date/Time: Sunday, May 21, 2017 15:55 - CONCLUSION: Negative. No venous thrombosis of the left lower extremity. Ronni Nunez MD Tibia/Fibula X-Ray 05/21/17 1518 Signed Impressions: Service Date/Time: Sunday, May 21, 2017 15:36 - CONCLUSION: Intact left tibia and fibula. Ronni Nunez MD Ankle X-Ray 05/21/17 1518 Signed Impressions: Service Date/Time: Sunday, May 21, 2017 15:44 - CONCLUSION: No evidence of fracture. Naveed Wilks MD Lower Extremity CT 05/21/17 0000 Signed Impressions: Service Date/Time: Sunday, May 21, 2017 17:20 - CONCLUSION: No evidence of fracture. Naveed Wilks MD Knee X-Ray 05/21/17 0000 Signed Impressions: Service Date/Time: Sunday, May 21, 2017 14:28 - CONCLUSION: No evidence of fracture. Mild arthritic findings with mild medial compartment narrowing. Small joint effusion. Naveed Wilks MD Chest X-Ray 05/21/17 0000 Signed Impressions: Service Date/Time: Sunday, May 21, 2017 21:38 - CONCLUSION: Minimal left base atelectasis/scarring. Chronic right Bochdalek hernia containing fat. Ronni Nunez MD Caprini VTE Risk Assessment Caprini VTE Risk Assessment: Mod/High Risk (score >= 2) Caprini Risk Assessment Model Point Value = 1 Point Value = 2 Point Value = 3 Point Value = 5 Age 41-60 Minor surgery BMI > 25 kg/m2 Swollen legs Varicose veins or History of unexplained or recurrent spontaneous Oral contraceptives or hormone replacement Sepsis (< 1 month) Serious lung disease, including pneumonia (< 1 month) Abnormal pulmonary function Acute myocardial infarction Congestive heart failure (< 1 month) History of inflammatory bowel disease Medical patient at bed rest Age 61-74 Arthroscopic surgery Major open surgery (> 45 min) Laparoscopic surgery (> 45 min) Malignancy Confined to bed (> 72 hours) Immobilizing plaster cast Central venous access Age >= 75 History of VTE Family history of VTE Factor V Leiden Prothrombin [id number] Lupus anticoagulant Anticardiolipin antibodies Elevated serum homocysteine Heparin-induced thrombocytopenia Other congenital or acquired thrombophilia Stroke (< 1 month) Elective arthroplasty Hip, pelvis, or leg fracture Acute spinal cord injury (< 1 month) Prophylaxis Regimen Total Risk Factor Score Risk Level Prophylaxis Regimen 0-1 Low Early ambulation 2 Moderate Order ONE of the following: *Sequential Compression Device (SCD) *Heparin 5000 units SQ BID 3-4 Higher Order ONE of the following medications: *Heparin 5000 units SQ TID *Enoxaparin/Lovenox 40 mg SQ daily (WT < 150 kg, CrCl > 30 mL/min) *Enoxaparin/Lovenox 30 mg SQ daily (WT < 150 kg, CrCl > 10-29 mL/min) *Enoxaparin/Lovenox 30 mg SQ BID (WT < 150 kg, CrCl > 30 mL/min) AND/OR *Sequential Compression Device (SCD) 5 or more Highest Order ONE of the following medications: *Heparin 5000 units SQ TID (Preferred with Epidurals) *Enoxaparin/Lovenox 40 mg SQ daily (WT < 150 kg, CrCl > 30 mL/min) *Enoxaparin/Lovenox 30 mg SQ daily (WT < 150 kg, CrCl > 10-29 mL/min) *Enoxaparin/Lovenox 30 mg SQ BID (WT < 150 kg, CrCl > 30 mL/min) AND *Sequential Compression Device (SCD) Assessment and Plan Problem List: (1) Left knee pain ICD Code: M25.562 - Pain in left knee Status: Acute (2) Unable to ambulate ICD Code: R26.2 - Difficulty in walking, not elsewhere classified Status: Acute (3) Fall ICD Code: W19.XXXA - Unspecified fall, initial encounter Assessment and Plan Mrs. Cormier is a pleasant 81-year-old female with a history of COPD, atrial fibrillation on Coumadin, coronary artery disease status post PTCA in the , hyperlipidemia, DVT, hiatal hernia, hypertension, Parkinson's disease, and hypothyroidism who presented to the emergency room on 05/21/2017 after a fall at home resulted in severe left leg pain with inability to bear weight/ambulate. The patient was admitted for observation following negative imaging for physical therapy evaluation. Left leg pain - Ankle and tibia and fibula x-rays were negative in the emergency room. Left knee x-ray showed mild arthritic findings; mild medial compartment narrowing; small joint effusion. A lower extremity CT was performed and was negative for evidence of fracture. - Consult physical therapy for evaluation/treatment - Case management consult - Morphine 2 mg IV push every 4 hours as needed for severe pain not relieved with home p.o. Tramadol - monitor symptoms - concern for possible delayed bleed secondary to coumadin Chest congestion - just completed outpatient antibiotics for respiratory infection - duonebs q4h PRN and q6h ATC - CXR ordered - shows only minimal left base atelectasis/scarring - monitor symptoms Supratherapeutic INR - Hold Coumadin for now - Daily PT/INR - follow results and resume Coumadin when appropriate DVT prophylaxis - INR 3.[address] Bolaños, patient, RN . Problem Qualifiers (1) Left knee pain: Qualified Codes: M25.562 - Pain in left knee Sandra Yang May 21, 2017 21:08
[2017-05-21] MEDS: TEMAZEPAM 15 MG CAP PO PRN (21:09)
[2017-05-21] MEDS: PREGABALIN 100 MG CAP PO SCH (21:09)
[2017-05-21] MEDS: DOCUSATE SODIUM 50 MG/SENNA 8.6 MG TAB PO SCH (21:09)
[2017-05-21] MEDS: traMADol HCL 50 MG TAB PO PRN (21:10)
[2017-05-21] MEDS ORDERED: RESP: ALBUTEROL 2.5 MG/IPRATROPIUM 0.5 MG NEB (SCH) NEB ONE (21:15)
--- NOTE | 2017-05-21 21:52 | RADRPT ---
EXAM DATE/TIME: 05/21/2017 21:38 [facility] COMPARISON: CT ABDOMEN & PELVIS W CONTRAST, March 25, 2017, 3:29. CHEST SINGLE AP, June 23, 2015, 9:52. INDICATIONS : Cough MEDICAL HISTORY : None. SURGICAL HISTORY : None. ENCOUNTER: Initial ACUITY: 1 day PAIN SCORE: 0/10 LOCATION: chest FINDINGS: Trace atelectasis/scarring seen left base. Lungs are otherwise clear. No pleural effusion. No pneumot horax. Fat containing Bochdalek hernia on the right again seen. Normal, stable heart size. CONCLUSION: Minimal left base atelectasis/scarring. Chronic right Bochdalek hernia containing fat. Ronni Nunez MD on May 21, 2017 at 21:48 Board Certified Radiologist. This report was verified electronically.
[2017-05-21] MEDS: BECLOMETHASONE DIPROPIONATE 40 MCG/ACT 8.7 GM INHALER INH SCH (21:58)
[2017-05-22] VITALS (8 sets, daily range): BP systolic 101–141; BP diastolic 54–83; PULSE 81–116; RESP 18–20; TEMP 97.4–98.1; O2SAT 90–100
[2017-05-22] MEDS: SODIUM CHLOR 0.9% 1000 ML INJ 1,000 ML IV SCH ×3 (04:25→23:18)
[2017-05-22] MEDS: traMADol HCL 50 MG TAB PO PRN ×3 (04:59→21:59)
[2017-05-22] MEDS: LEVOTHYROXINE SODIUM 50 MCG TAB PO SCH (05:01)
[2017-05-22] MEDS: RESP: ALBUTEROL 2.5 MG/IPRATROPIUM 0.5 MG NEB (SCH) NEB ×3 (07:45→20:12)
[2017-05-22] MEDS: SUCRALFATE 1 GM TAB PO SCH ×3 (09:00→17:49)
[2017-05-22] MEDS: PREGABALIN 100 MG CAP PO SCH ×2 (09:00→21:59)
[2017-05-22] MEDS: POTASSIUM CHLORIDE 10 MEQ CONTROLLED RELEASE TAB PO SCH ×3 (09:00→17:49)
[2017-05-22] MEDS: DOCUSATE SODIUM 50 MG/SENNA 8.6 MG TAB PO SCH ×2 (09:00→21:59)
[2017-05-22] MEDS: BECLOMETHASONE DIPROPIONATE 40 MCG/ACT 8.7 GM INHALER INH SCH ×2 (09:00→21:58)
[2017-05-22] MEDS: PRAVASTATIN SOD 80 MG TAB PO SCH (09:00)
[2017-05-22] MEDS: SODIUM CHLORIDE 0.9% FLUSH 10 ML FLUSH IV FLUSH SCH ×2 (09:00→21:00)
[2017-05-22] MEDS: FUROSEMIDE 20 MG TAB PO SCH (09:00)
[2017-05-22] MEDS: ATENOLOL 25 MG TAB PO SCH (09:00)
[2017-05-22] MEDS: CARBIDOPA/LEVODOPA 25 MG/250 MG TAB PO SCH ×4 (09:00→21:59)
[2017-05-22] MEDS: SUCRALFATE 1 GM/10 ML CUP PO SCH ×2 (09:00→21:58)
--- NOTE | 2017-05-22 09:49 | HHI.PR ---
Subjective Remarks Follow up for left knee pain s/p fall. The patient reports all last week she was sick with an upper respiratory infection. She saw her PCP and her flu screen was negative. She has recently completed a course of cipro and prednisone. She states her left knee has been bothering her all week and then yesterday she stood up from her bed to use the restroom when her knee just gave out and she fell to the floor. She denies ever having any lightheadedness, dizziness, or loss of consciousness. She continues to complain of diffuse left knee pain with shooting pains down the leg. Denies any fevers/chills. Her URI symptoms are improving. She has no other medical complaints at this time. Objective Vitals Vital Signs Date Time Temp Pulse Resp B/P (MAP) Pulse Ox O2 Delivery O2 Flow Rate FiO2 05/22/17 08:27 97.9 81 20 138/64 (88) 94 05/22/17 03:56 98.0 91 18 101/54 (70) 90 05/22/17 00:09 97.9 116 20 131/68 (89) 100 05/21/17 20:33 98.0 68 18 138/72 (94) 95 05/21/17 18:31 05/21/17 16:52 99 18 124/58 (80) 94 Room Air 05/21/17 15:32 83 18 138/79 (98) 100 05/21/17 15:29 97 Nasal Cannula 2.00 05/21/17 15:15 18 99 Room Air 05/21/17 13:25 98.2 82 18 135/79 (97) 98 I/O 05/21/17 05/21/17 05/21/17 05/22/17 05/22/17 05/22/17 07:00 15:00 23:00 07:00 15:00 23:00 Intake Total 120 ml Output Total 600 ml Balance -600 ml 120 ml Intake Oral 120 ml Output Urine Total 600 ml # Voids 1 8 Result Diagram: 05/21/17 1300 05/21/17 1300 Imaging Last Impressions Lower Extremity Ultrasound 05/21/17 1531 Signed Impressions: Service Date/Time: Sunday, May 21, 2017 15:55 - CONCLUSION: Negative. No venous thrombosis of the left lower extremity. Ronni Nunez MD Tibia/Fibula X-Ray 1/28/18 1518 Signed Impressions: Service Date/Time: Sunday, May 21, 2017 15:36 - CONCLUSION: Intact left tibia and fibula. Ronni Nunez MD Ankle X-Ray 05/21/17 1518 Signed Impressions: Service Date/Time: Sunday, May 21, 2017 15:44 - CONCLUSION: No evidence of fracture. Naveed Wilks MD Lower Extremity CT 05/21/17 0000 Signed Impressions: Service Date/Time: Sunday, May 21, 2017 17:20 - CONCLUSION: No evidence of fracture. Naveed Wilks MD Knee X-Ray 05/21/17 0000 Signed Impressions: Service Date/Time: Sunday, May 21, 2017 14:28 - CONCLUSION: No evidence of fracture. Mild arthritic findings with mild medial compartment narrowing. Small joint effusion. Naveed Wilks MD Chest X-Ray 05/21/17 0000 Signed Impressions: Service Date/Time: Sunday, May 21, 2017 21:38 - CONCLUSION: Minimal left base atelectasis/scarring. Chronic right Bochdalek hernia containing fat. Ronni Nunez MD Objective Remarks GENERAL: Well-nourished, well-developed pleasant elderly female patient in [facility]. SKIN: Warm and dry. No rash. Scattered ecchymosis throughout extremities with various stages of healing. HEENT: Normocephalic. Atraumatic. Pupils equal and round. Mucous membranes pink and moist. NECK: Supple. Trachea midline. CARDIOVASCULAR: Regular rate and rhythm. S1, S2 noted. No murmur appreciated. RESPIRATORY: No accessory muscle use. Clear to auscultation. Breath sounds equal bilaterally. GASTROINTESTINAL: Abdomen soft, non-tender, nondistended. Normoactive bowel sounds x4. MUSCULOSKELETAL: No obvious deformities. Extremities without clubbing, cyanosis , or edema. Left knee with diffuse tenderness to palpation although no specific bony point tenderness, severe pain on active and passive ROM limiting exam. NEUROLOGICAL: Awake and alert. No obvious cranial nerve deficits. Motor grossly within normal limits. Moves all extremities spontaneously. Normal speech. PSYCHIATRIC: Appropriate mood and affect; insight and judgment normal. Medications and IVs Current Medications Medications (Trade) Dose Ordered Sig/Salo Route Start Time Stop Time Status Last Admin (Tenormin) 25 mg DAILY PO 05/22/17 09:00 05/22/17 09:00 (Qvar 40 Mcg Inh) 2 puff BID INH 05/21/17 21:00 05/22/17 09:00 (Sinemet 25-250 Mg) 1 tab QID PO 05/21/17 18:00 05/22/17 13:16 (Lasix) 20 mg DAILY PO 05/22/17 09:00 05/22/17 09:00 (Synthroid) 50 mcg DAILY@0600 PO 05/22/17 06:00 05/22/17 05:01 (Antivert) 25 mg TID PRN PO 05/21/17 17:45 (Zofran Odt) 4 mg Q8HR PRN SL 05/21/17 17:45 (KCl) 10 meq TID PO 05/21/17 18:00 05/22/17 13:17 (Lyrica) 100 mg BID PO 05/21/17 21:00 05/22/17 09:00 (Carafate) 1 gm TID PO 05/21/17 18:00 05/22/17 13:18 (Carafate Liq) 1 gm BID PO 05/21/17 21:00 05/22/17 09:00 (Restoril) 15 mg HS PRN PO 05/21/17 17:45 05/21/17 21:09 (Ultram) 50 mg Q8H PRN PO 05/21/17 17:45 05/22/17 13:18 (Pravachol) 80 mg DAILY PO 05/22/17 09:00 05/22/17 09:00 (Duoneb Neb) 1 ampule Q4HR NEB PRN NEB 05/21/17 17:45 05/21/17 21:16 (Nitrostat Sl) 0.4 mg Q5M PRN SL 05/21/17 17:45 (Morphine Inj) 2 mg Q4H PRN IV PUSH 05/21/17 17:45 Sodium Chloride 1,000 ml @ 100 mls/hr Q10H IV 05/21/17 18:00 05/22/17 13:19 (NS Flush) 2 ml UNSCH PRN IV FLUSH 05/21/17 17:45 (NS Flush) 2 ml BID IV FLUSH 05/21/17 21:00 (Tylenol) 650 mg Q4H PRN PO 05/21/17 17:45 (Zofran Inj) 4 mg Q6H PRN IVP 05/21/17 17:45 (Narcan Inj) 0.4 mg UNSCH PRN IV PUSH 05/21/17 17:45 (Hsannan-Colace) 1 tab BID PO 05/21/17 21:00 05/22/17 09:00 (Milk Of Magnesia Liq) 30 ml Q12H PRN PO 05/21/17 17:45 (Senokot) 17.2 mg Q12H PRN PO 05/21/17 17:45 (Dulcolax Supp) 10 mg DAILY PRN RECTAL 05/21/17 17:45 (Lactulose Liq) 30 ml DAILY PRN PO 05/21/17 17:45 (Duoneb Neb) 1 ampule Q6HR WHILE AWAKE NEB NEB 05/22/17 08:00 05/22/17 14:48 A/P Problem List: (1) Left knee pain ICD Code: M25.562 - Pain in left knee Status: Acute (2) Unable to ambulate ICD Code: R26.2 - Difficulty in walking, not elsewhere classified Status: Acute (3) Fall ICD Code: W19.XXXA - Unspecified fall, initial encounter Assessment and Plan 81-year-old female with a history of COPD, atrial fibrillation on Coumadin, CAD s/p PTCA in the 1980s, HTN, HLD, DVT, hiatal hernia, Parkinson's disease, and hypothyroidism who presented to the ED 05/21/2017 after a fall at home with left knee pain, inability to ambulate. Left leg pain: suspect knee sprain. LLE ankle/tibia/fibula x-rays reviewed, negative. Left knee x-ray showed mild arthritic findings; mild medial compartment narrowing; small joint effusion. LLE CT negative for evidence of fracture. - Consult physical therapy for evaluation/treatment, recommends rehab placement - Case management consult for assistance with discharge planning - Continue tramadol prn pain, IV morphine prn breakthrough pain - monitor symptoms - concern for possible delayed bleed secondary to coumadin Chest congestion/URI: CXR images reviewed, shows only minimal left base atelectasis/scarring - recently completed outpatient antibiotics with Cipro and course of steroids for respiratory infection - continue duonebs q6h scheduled, and q4h prn - give Robitussin prn cough - monitor symptoms Afib on Coumadin with Supratherapeutic INR - Hold Coumadin for now - Daily PT/INR - follow results and resume Coumadin when < 3.0 DVT prophylaxis: supratherapeutic on Coumadin Discharge Planning PT recommending rehab. Per case management, patient does not qualify for rehab. Continue daily PT. Will discuss with case management if patient can go to [facility]? Problem Qualifiers (1) Left knee pain: Qualified Codes: M25.562 - Pain in left knee Emelyn Gray PA-C May 22, 2017 9:49 am
[2017-05-22] MEDS ORDERED: guaiFENesin/DEXTROMETHORPHAN 200 MG/20 MG/10 ML CUP PO PRN (15:00)
[2017-05-22 16:52] LABS: AUTOMATED NEUTROPHIL # 3.5 TH/MM3 (1.8-7.7); BASOPHIL % 0.5 % (0.0-2.0); EOSINOPHIL # 0.1 TH/MM3 (0-0.4); EOSINOPHIL % 2.1 % (0.0-4.0); HEMATOCRIT 32.3 % (35.0-46.0); HEMOGLOBIN 11.2 GM/DL (11.6-15.3); LYMPH % 9.4 % (9.0-44.0); LYMPHOCYTE # 0.4 TH/MM3 (1.0-4.8); MEAN CELL VOLUME 96.9 FL (80.0-100.0); MEAN CORPUSCULAR HEMOGLOBIN 33.7 PG (27.0-34.0); MEAN CORPUSCULAR HGB CONC 34.8 % (32.0-36.0); MEAN PLATELET VOLUME 6.3 FL (7.0-11.0); MONO % 9.5 % (0.0-8.0); MONOCYTE # 0.4 TH/MM3 (0-0.9); NEUT % 78.5 % (16.0-70.0); PLATELET COUNT 146 TH/MM3 (150-450); RED BLOOD COUNT 3.33 MIL/MM3 (4.00-5.30); RED CELL DISTRIBUTION WIDTH 15.1 % (11.6-17.2); WHITE BLOOD COUNT 4.4 TH/MM3 (4.0-11.0)
[2017-05-22 16:59] LABS: INTERNATIONAL NORMALIZED RATIO 2.2 RATIO; PROTHROMBIN TIME - PATIENT 22.5 SEC (9.8-11.6)
[2017-05-22 17:10] LABS: BICARBONATE 29.3 MEQ/L (21.0-32.0); CALCIUM 7.8 MG/DL (8.5-10.1); CREATININE 0.39 MG/DL (0.50-1.00)
--- NOTE | 2017-05-22 19:51 | EKG ---
Date Performed: 05/21/2017 Time Performed: 15:20:22 PTAGE: 81 years EKG: ATRIAL FIBRILLATION WITH RAPID VENTRICULAR RESPONSE LOW QRS VOLTAGE IN PRECORDIAL LEADS NON SPECIFIC ST & T-WAVE ABNORMALITY Since previous tracing, no significant change noted ABNORMAL RHYTHM ECG PREVIOUS TRACING : 04/20/2016 09.47 DOCTOR: Eduardo Whyte Interpretating Date/Time 05/22/2017 19:49:12
[2017-05-22] MEDS: TEMAZEPAM 15 MG CAP PO PRN (23:18)
[2017-05-23] VITALS (9 sets, daily range): BP systolic 120–149; BP diastolic 68–88; PULSE 87–136; RESP 16–18; TEMP 97.6–99.1; O2SAT 91–96
[2017-05-23] MEDS: LEVOTHYROXINE SODIUM 50 MCG TAB PO SCH (06:01)
[2017-05-23 06:54] LABS: AUTOMATED NEUTROPHIL # 3.5 TH/MM3 (1.8-7.7); BASOPHIL % 0.6 % (0.0-2.0); EOSINOPHIL # 0.1 TH/MM3 (0-0.4); EOSINOPHIL % 2.8 % (0.0-4.0); HEMATOCRIT 31.9 % (35.0-46.0); HEMOGLOBIN 11.2 GM/DL (11.6-15.3); LYMPH % 5.1 % (9.0-44.0); LYMPHOCYTE # 0.2 TH/MM3 (1.0-4.8); MEAN CELL VOLUME 96.7 FL (80.0-100.0); MEAN CORPUSCULAR HEMOGLOBIN 34.1 PG (27.0-34.0); MEAN CORPUSCULAR HGB CONC 35.3 % (32.0-36.0); MEAN PLATELET VOLUME 6.4 FL (7.0-11.0); MONO % 8.7 % (0.0-8.0); MONOCYTE # 0.4 TH/MM3 (0-0.9); NEUT % 82.8 % (16.0-70.0); PLATELET COUNT 137 TH/MM3 (150-450); RED CELL DISTRIBUTION WIDTH 14.9 % (11.6-17.2); WHITE BLOOD COUNT 4.2 TH/MM3 (4.0-11.0)
[2017-05-23 07:09] LABS: INTERNATIONAL NORMALIZED RATIO 2.5 RATIO; PROTHROMBIN TIME - PATIENT 25.4 SEC (9.8-11.6)
[2017-05-23 07:17] LABS: BICARBONATE 28.9 MEQ/L (21.0-32.0); CALCIUM 7.6 MG/DL (8.5-10.1); CREATININE 0.41 MG/DL (0.50-1.00)
[2017-05-23] MEDS: RESP: ALBUTEROL 2.5 MG/IPRATROPIUM 0.5 MG NEB (SCH) NEB ×3 (08:56→20:20)
[2017-05-23] MEDS: SODIUM CHLORIDE 0.9% FLUSH 10 ML FLUSH IV FLUSH SCH ×2 (09:00→20:42)
[2017-05-23] MEDS: CARBIDOPA/LEVODOPA 25 MG/250 MG TAB PO SCH ×5 (10:06→20:42)
[2017-05-23] MEDS: POTASSIUM CHLORIDE 10 MEQ CONTROLLED RELEASE TAB PO SCH ×4 (10:07→18:43)
[2017-05-23] MEDS: PREGABALIN 100 MG CAP PO SCH ×2 (10:07→20:42)
[2017-05-23] MEDS: PRAVASTATIN SOD 80 MG TAB PO SCH (10:07)
[2017-05-23] MEDS: FUROSEMIDE 20 MG TAB PO SCH (10:07)
[2017-05-23] MEDS: SUCRALFATE 1 GM TAB PO SCH ×4 (10:07→18:43)
[2017-05-23] MEDS: DOCUSATE SODIUM 50 MG/SENNA 8.6 MG TAB PO SCH ×2 (10:07→20:42)
[2017-05-23] MEDS: SODIUM CHLOR 0.9% 1000 ML INJ 1,000 ML IV SCH (10:08)
[2017-05-23] MEDS: SUCRALFATE 1 GM/10 ML CUP PO SCH ×2 (10:09→20:41)
[2017-05-23] MEDS: BECLOMETHASONE DIPROPIONATE 40 MCG/ACT 8.7 GM INHALER INH SCH ×2 (10:09→20:41)
[2017-05-23] MEDS: ATENOLOL 25 MG TAB PO SCH (10:10)
[2017-05-23] MEDS ORDERED: WALKER/YOUTH/FO1 MIS (11:42)
[2017-05-23] MEDS: MECLIZINE HCL 25 MG TAB PO PRN (12:32)
--- NOTE | 2017-05-23 13:06 | HHI.PR ---
Subjective Remarks Follow-up visit status post fall, left knee pain, upper respiratory infection. Patient seen and examined today lying in bed. States she is not feeling well. Reports vomiting earlier. at the bedside and states that she is taking a medication from [facility] an hour before her meals for her not to have vomiting or nausea. States she was given Zofran but did not work. Patient all of a sudden started to vomit, sounded congested. Denies fevers, chills. Objective Vitals Vital Signs Date Time Temp Pulse Resp B/P (MAP) Pulse Ox O2 Delivery O2 Flow Rate FiO2 05/23/17 11:37 18 05/23/17 09:00 98.0 109 16 120/68 (85) 95 05/23/17 08:58 96 21 05/23/17 03:49 98.3 136 18 124/69 (87) 96 05/23/17 00:02 98.2 107 18 133/86 (102) 94 05/22/17 21:38 98.1 112 18 139/83 (101) 95 05/22/17 20:10 96 21 05/22/17 16:18 97.4 105 20 141/71 (94) 95 05/22/17 14:51 22 05/22/17 14:50 92 21 I/O 05/22/17 05/22/17 05/22/17 05/23/17 05/23/17 05/23/17 07:00 15:00 23:00 07:00 15:00 23:00 Intake Total 120 ml Balance 120 ml Intake Oral 120 ml # Voids 8 2 2 Result Diagram: 05/23/17 0550 05/23/17 0550 Imaging Last Impressions Chest X-Ray 05/23/17 0000 Signed Impressions: Service Date/Time: Tuesday, May 23, 2017 13:21 - CONCLUSION: No acute disease. No significant change has occurred. Devyn Davis MD Lower Extremity Ultrasound 05/21/17 1531 Signed Impressions: Service Date/Time: Sunday, May 21, 2017 15:55 - CONCLUSION: Negative. No venous thrombosis of the left lower extremity. Ronni Nunez MD Tibia/Fibula X-Ray 05/21/17 1518 Signed Impressions: Service Date/Time: Sunday, May 21, 2017 15:36 - CONCLUSION: Intact left tibia and fibula. Ronni Nunez MD Ankle X-Ray 05/21/17 1518 Signed Impressions: Service Date/Time: Sunday, May 21, 2017 15:44 - CONCLUSION: No evidence of fracture. Naveed Wilks MD Lower Extremity CT 05/21/17 0000 Signed Impressions: Service Date/Time: Sunday, May 21, 2017 17:20 - CONCLUSION: No evidence of fracture. Naveed Wilks MD Knee X-Ray 05/21/17 0000 Signed Impressions: Service Date/Time: Sunday, May 21, 2017 14:28 - CONCLUSION: No evidence of fracture. Mild arthritic findings with mild medial compartment narrowing. Small joint effusion. Naveed Wilks MD Objective Remarks GENERAL: This is a obese, well-developed patient, in no apparent distress. SKIN: Warm and dry. Pale. HEENT: Normocephalic. Pupils equal round and reactive. Nose without bleeding. Airway patent. NECK: Trachea midline. CARDIOVASCULAR: Regular rate and rhythm without murmurs, gallops, or rubs. RESPIRATORY: No wheezing. Rales noted. Upper airway congestion. GASTROINTESTINAL: Abdomen soft, non-tender, nondistended. Bowel Sounds normoactive x4. MUSCULOSKELETAL: Extremities without clubbing, cyanosis, or edema. NEUROLOGICAL: Awake and alert. Oriented to place, person. No focal neuro deficit. Moves all extremities. Hoarse speech. A/P Problem List: (1) Left knee pain ICD Code: M25.562 - Pain in left knee Status: Acute (2) Unable to ambulate ICD Code: R26.2 - Difficulty in walking, not elsewhere classified Status: Acute (3) Fall ICD Code: W19.XXXA - Unspecified fall, initial encounter Assessment and Plan Patient is a 81-year-old female with a history of COPD, atrial fibrillation on Coumadin, CAD s/p PTCA in the 1980s, HTN, HLD, DVT, hiatal hernia, Parkinson's disease, and hypothyroidism who presented to the ED 05/21/2017 after a fall at home with left knee pain, inability to ambulate. Left leg pain: suspect knee sprain. LLE ankle/tibia/fibula x-rays reviewed, negative. Left knee x-ray showed mild arthritic findings; mild medial compartment narrowing; small joint effusion. LLE CT negative for evidence of fracture. - Consult physical therapy for evaluation/treatment, recommends rehab placement. - Case management consult for assistance with discharge planning - Continue tramadol prn pain, IV morphine prn breakthrough pain - monitor symptoms - concern for possible delayed bleed secondary to coumadin - H&H stable Chest congestion/URI: CXR images reviewed, shows only minimal left base atelectasis/scarring - recently completed outpatient antibiotics with Cipro and course of steroids for respiratory infection - continue duonebs q6h scheduled, and q4h prn - give Robitussin prn cough - Patient appears to have increased congestion. Repeat chest x-ray. - Repeat chest x-ray showed no acute disease. No significant changes occurred. Afib on Coumadin with Supratherapeutic INR - Daily PT/INR - follow results and resume Coumadin when < 3.0 - Recent INR 2.5 - Restart Coumadin 1 mg Nausea, vomiting - Continue home medication Motilium. Discussed with to bring the medication from home and will be restarted - Zofran when necessary DVT prophylaxis will restart Coumadin Discharge Planning Plan to discharge to rehabilitation. Spoke with case management the need to reevaluate if patient qualifies for rehabilitation. Problem Qualifiers (1) Left knee pain: Qualified Codes: M25.562 - Pain in left knee (2) Fall: Qualified Codes: W19.XXXD - Unspecified fall, subsequent encounter Jamar Contreras May 23, 2017 13:06
--- NOTE | 2017-05-23 13:53 | RADRPT ---
EXAM DATE/TIME: 05/23/2017 13:21 [facility] COMPARISON: CHEST SINGLE AP, June 23, 2015, 9:52. CHEST SINGLE AP, May 21, 2017, 21:38. INDICATIONS : Congestion. MEDICAL HISTORY : Cerebrovascular disease. Parkinsons. Cardiovascular diseaseHTN, Afib, DVT,GERD. SURGICAL HISTORY : Appendectomy. Cholecystectomy. Hysterectomy ENCOUNTER: Subsequent ACUITY: 3 days PAIN SCORE: 0/10 LOCATION: Bilateral chest FINDINGS: Signs of chronic right Bochdalek hernia containing fat are again noted in the right lung base . Scarr ing in the left base near the costophrenic angle is unchanged and the remainder the examination is ne gative CONCLUSION: No acute disease. No significant change has occurred. Devyn Davis MD on May 23, 2017 at 13:49 Board Certified Radiologist. This report was verified electronically.
[2017-05-23] MEDS ORDERED: WARFARIN SOD 1 MG TAB PO SCH (16:00)
[2017-05-23] MEDS: TEMAZEPAM 15 MG CAP PO PRN (20:42)
[2017-05-24] MEDS: traMADol HCL 50 MG TAB PO PRN ×2 (01:03→10:02)
[2017-05-24 03:03] VITALS: BP 127/61; PULSE 93; RESP 18; TEMP 99; O2SAT 92
[2017-05-24] MEDS: LEVOTHYROXINE SODIUM 50 MCG TAB PO SCH (05:26)
[2017-05-24 07:26] VITALS: BP 100/57; PULSE 103; RESP 18; TEMP 99.1; O2SAT 97
[2017-05-24] MEDS: RESP: ALBUTEROL 2.5 MG/IPRATROPIUM 0.5 MG NEB (SCH) NEB ×2 (07:47→13:27)
[2017-05-24 08:27] LABS: INTERNATIONAL NORMALIZED RATIO 2.2 RATIO; PROTHROMBIN TIME - PATIENT 22.7 SEC (9.8-11.6)
[2017-05-24] MEDS: DOCUSATE SODIUM 50 MG/SENNA 8.6 MG TAB PO SCH (09:00)
[2017-05-24] MEDS: SUCRALFATE 1 GM/10 ML CUP PO SCH (10:01)
[2017-05-24] MEDS: ATENOLOL 25 MG TAB PO SCH (10:01)
[2017-05-24] MEDS: SUCRALFATE 1 GM TAB PO SCH ×2 (10:02→13:15)
[2017-05-24] MEDS: POTASSIUM CHLORIDE 10 MEQ CONTROLLED RELEASE TAB PO SCH ×2 (10:02→13:15)
[2017-05-24] MEDS: CARBIDOPA/LEVODOPA 25 MG/250 MG TAB PO SCH ×2 (10:02→13:15)
[2017-05-24] MEDS: FUROSEMIDE 20 MG TAB PO SCH (10:02)
[2017-05-24] MEDS: SODIUM CHLORIDE 0.9% FLUSH 10 ML FLUSH IV FLUSH SCH (10:03)
[2017-05-24] MEDS: BECLOMETHASONE DIPROPIONATE 40 MCG/ACT 8.7 GM INHALER INH SCH (10:03)
[2017-05-24] MEDS: PREGABALIN 100 MG CAP PO SCH (10:03)
--- NOTE | 2017-05-24 11:09 | HHI.FF ---
Face to Face Verification Diagnosis: (1) Parkinson disease (2) COPD (chronic obstructive pulmonary disease) (3) Hypertension (4) Hyperlipemia (5) History of atrial fibrillation (6) Left knee pain (7) Fall (8) Left foot pain (9) Debility (10) COPD (chronic obstructive pulmonary disease) Physical Therapy Order: Evaluate and Treat, Strength and gait training Occupational Therapy Order: Evaluate and Treat, Improve ADL Home Health Nursing Order: Medical education Signs/symptoms of disease process Nursing assessment with vital signs Home Health Aide Order: To Assist In: Bathing and personal care I have seen patient Nina Cormier on 05/24/17. My clinical findings support the need for the requested home health care services because: Deconditioned w/ increased weakness Limited ability to care for self High risk of falls I certify that my clinical findings support that this patient is homebound because: Impaired cognitive ability/safety Unsteady gait/balance Unable to use public transportation Request for respiratory therapy via Nurse automation machine operator. Jamar Contreras May 24, 2017 11:09
--- NOTE | 2017-05-24 11:10 | HHI.PR ---
Subjective Remarks Follow-up visit status post fall, left knee pain, upper respiratory infection. Patient seen and examined today lying in bed. States she sees she is feeling a lot better. Patient is eating breakfast. and home care at the bedside. Discussed with patient, that patient is going home today after physical therapy. She will need physical therapy, occupational therapy at home to help her regain strength and gait. Denies pain and discomfort. Denies SOB/ dyspnea. Denies chest pain, palpitations, headaches, dizziness. Denies fevers, chills. Denies dysuria. Objective Vitals Vital Signs Date Time Temp Pulse Resp B/P (MAP) Pulse Ox O2 Delivery O2 Flow Rate FiO2 05/24/17 07:26 99.1 103 18 100/57 (71) 97 05/24/17 03:03 99.0 93 18 127/61 (83) 92 05/23/17 23:38 99.1 92 18 135/81 (99) 91 05/23/17 20:20 94 21 05/23/17 20:01 98.2 87 18 149/69 (95) 94 05/23/17 16:16 127 18 146/88 (107) 95 05/23/17 12:40 97.6 108 18 125/78 (94) 92 05/23/17 11:37 18 I/O 05/23/17 05/23/17 05/23/17 05/24/17 05/24/17 05/24/17 07:00 15:00 23:00 07:00 15:00 23:00 Intake Total 250 ml Balance 250 ml IV Total 250 ml Result Diagram: 05/23/17 0550 05/23/17 0550 Imaging Last Impressions Chest X-Ray 05/23/17 0000 Signed Impressions: Service Date/Time: Tuesday, May 23, 2017 13:21 - CONCLUSION: No acute disease. No significant change has occurred. Devyn Davis MD Lower Extremity Ultrasound 05/21/17 1531 Signed Impressions: Service Date/Time: Sunday, May 21, 2017 15:55 - CONCLUSION: Negative. No venous thrombosis of the left lower extremity. Ronni Nunez MD Tibia/Fibula X-Ray 05/21/17 1518 Signed Impressions: Service Date/Time: Sunday, May 21, 2017 15:36 - CONCLUSION: Intact left tibia and fibula. Ronni Nunez MD Ankle X-Ray 05/21/17 1518 Signed Impressions: Service Date/Time: Sunday, May 21, 2017 15:44 - CONCLUSION: No evidence of fracture. Naveed Wilks MD Lower Extremity CT 05/21/17 0000 Signed Impressions: Service Date/Time: Sunday, May 21, 2017 17:20 - CONCLUSION: No evidence of fracture. Naveed Wilks MD Knee X-Ray 05/21/17 0000 Signed Impressions: Service Date/Time: Sunday, May 21, 2017 14:28 - CONCLUSION: No evidence of fracture. Mild arthritic findings with mild medial compartment narrowing. Small joint effusion. Naveed Wilks MD Objective Remarks GENERAL: This is a obese, well-developed patient, in no apparent distress. SKIN: Warm and dry. Pale. HEENT: Normocephalic. Pupils equal round and reactive. Nose without bleeding. Airway patent. NECK: Trachea midline. CARDIOVASCULAR: Regular rate and rhythm without murmurs, gallops, or rubs. RESPIRATORY: Bilateral upper lobes clear. Diminished bases. No wheeze. GASTROINTESTINAL: Abdomen soft, non-tender, nondistended. Bowel Sounds normoactive x4. MUSCULOSKELETAL: Extremities without clubbing, cyanosis, or edema. NEUROLOGICAL: Awake and alert. Oriented to place, person. No focal neuro deficit. Moves all extremities. Hoarse speech. Procedures None A/P Problem List: (1) Left knee pain ICD Code: M25.562 - Pain in left knee Status: Acute (2) Unable to ambulate ICD Code: R26.2 - Difficulty in walking, not elsewhere classified Status: Acute (3) Fall ICD Code: W19.XXXA - Unspecified fall, initial encounter Assessment and Plan Patient is a 81-year-old female with a history of COPD, atrial fibrillation on Coumadin, CAD s/p PTCA in the 1980s, HTN, HLD, DVT, hiatal hernia, Parkinson's disease, and hypothyroidism who presented to the ED 05/21/2017 after a fall at home with left knee pain, inability to ambulate. Left leg pain: suspect knee sprain. LLE ankle/tibia/fibula x-rays reviewed, negative. Left knee x-ray showed mild arthritic findings; mild medial compartment narrowing; small joint effusion. LLE CT negative for evidence of fracture. - Consult physical therapy for evaluation/treatment, recommends rehab placement vs PT at home - Case management consult for assistance with discharge planning - Continue tramadol prn pain, IV morphine prn breakthrough pain - monitor symptoms - concern for possible delayed bleed secondary to coumadin - H&H stable - Spoke extensively with , patient, and home care regarding dc plan and continuation of PT/OT at home. Chest congestion/URI: CXR images reviewed, shows only minimal left base atelectasis/scarring - recently completed outpatient antibiotics with Cipro and course of steroids for respiratory infection - continue duonebs q6h scheduled, and q4h prn - give Robitussin prn cough - Patient appears to have increased congestion. Repeat chest x-ray. - Repeat chest x-ray showed no acute disease. No significant changes occurred. - Improved. Continue with nebulization at home. Spoke with home care to continue with nebulization. O2 as needed. Afib on Coumadin with Supratherapeutic INR - Daily PT/INR - follow results and resume Coumadin when < 3.0 - Recent INR 2.2 - Restart Coumadin 1 mg. Nausea, vomiting - Continue home medication Motilium. Discussed with to bring the medication from home and will be restarted - Zofran when necessary DVT prophylaxis will restart Coumadin Discharge Planning Plan to discharge home with home health care PT/OT/RT. Spoke with case management. Ndsu-uv-sarm completed. Prefers nurse senior recruitment consultant. Problem Qualifiers (1) Left knee pain: Qualified Codes: M25.562 - Pain in left knee (2) Fall: Qualified Codes: W19.XXXD - Unspecified fall, subsequent encounter Jamar Contreras May 24, 2017 11:10
[2017-05-24 11:25] VITALS: BP 144/81; PULSE 106; RESP 18; TEMP 98.5; O2SAT 90
[2017-05-24] MEDS ORDERED: COUM1TAB PO (11:36)
[2017-05-24] MEDS ORDERED: Albuterol-Ipratropium Neb NEB (11:36)
--- NOTE | 2017-05-24 11:41 | HHI.DS ---
Discharge Summary Admission Date May 21, 2017 at 17:29 Discharge Date: May 24, 2017 Admitting Diagnosis fall, coumadin use, left leg pain (1) Left knee pain ICD Code: M25.562 - Pain in left knee Status: Acute (2) Unable to ambulate ICD Code: R26.2 - Difficulty in walking, not elsewhere classified Status: Acute (3) Fall ICD Code: W19.XXXA - Unspecified fall, initial encounter Procedures None Brief History - From Admission Mrs. Cormier is a pleasant 81-year-old female with a history of COPD, atrial fibrillation on Coumadin, coronary artery disease status post PTCA in the , hyperlipidemia, DVT, hiatal hernia, hypertension, Parkinson's disease, and hypothyroidism who presented to the emergency room on 05/21/2017 after a fall at home resulted in severe left leg pain with inability to bear weight/ambulate. The patient was admitted for observation following negative imaging for physical therapy evaluation. The patient is seen in the CDU. She states she was getting up to the bathroom when her left knee gave out and she collapsed to the floor on her left side. She denies hitting her head or losing consciousness. She states immediately afterwards, she was unable to bear weight on the left leg. She reports she's been having problems over the past week with the left knee being painful but this was her first fall. Her knee pain is severe and located in the posterior aspect of the knee and is accompanied by left phan and foot pain. Ankle and tibia and fibula x-rays were negative in the emergency room. Left knee x-ray showed mild arthritic findings; mild medial compartment narrowing; small joint effusion. A lower extremity CT was performed and was negative for evidence of fracture. CBC/BMP: 05/23/17 0550 05/23/17 0550 Significant Findings Laboratory Tests Test 05/21/17 13:00 05/22/17 15:31 05/23/17 05:50 05/24/17 07:41 Mean Platelet Volume 6.2 FL (7.0-11.0) 6.3 FL (7.0-11.0) 6.4 FL (7.0-11.0) Neutrophils (%) (Auto) 84.9 % (16.0-70.0) 78.5 % (16.0-70.0) 82.8 % (16.0-70.0) Lymphocytes (%) (Auto) 5.7 % (9.0-44.0) 5.1 % (9.0-44.0) Lymphocytes # (Auto) 0.4 TH/MM3 (1.0-4.8) 0.4 TH/MM3 (1.0-4.8) 0.2 TH/MM3 (1.0-4.8) Prothrombin Time 32.3 SEC (9.8-11.6) 22.5 SEC (9.8-11.6) 25.4 SEC (9.8-11.6) 22.7 SEC (9.8-11.6) Urine Leukocyte Esterase SMALL (NEG) Urine Bacteria OCC /hpf (NONE) Creatinine 0.41 MG/DL (0.50-1.00) 0.39 MG/DL (0.50-1.00) 0.41 MG/DL (0.50-1.00) Total Protein 6.3 GM/DL (6.4-8.2) Albumin 2.7 GM/DL (3.4-5.0) Calcium Level 8.3 MG/DL (8.5-10.1) 7.8 MG/DL (8.5-10.1) 7.6 MG/DL (8.5-10.1) Red Blood Count 3.33 MIL/MM3 (4.00-5.30) 3.30 MIL/MM3 (4.00-5.30) Hemoglobin 11.2 GM/DL (11.6-15.3) 11.2 GM/DL (11.6-15.3) Hematocrit 32.3 % (35.0-46.0) 31.9 % (35.0-46.0) Platelet Count 146 TH/MM3 (150-450) 137 TH/MM3 (150-450) Monocytes (%) (Auto) 9.5 % (0.0-8.0) 8.7 % (0.0-8.0) Sodium Level 135 MEQ/L (136-145) 132 MEQ/L (136-145) Potassium Level 3.0 MEQ/L (3.5-5.1) Mean Corpuscular Hemoglobin 34.1 PG (27.0-34.0) Blood Urea Nitrogen 4 MG/DL (7-18) Random Glucose 112 MG/DL (74-106) Imaging Last Impressions Chest X-Ray 05/23/17 0000 Signed Impressions: Service Date/Time: Tuesday, May 23, 2017 13:21 - CONCLUSION: No acute disease. No significant change has occurred. Devyn Davis MD Lower Extremity Ultrasound 05/21/17 1531 Signed Impressions: Service Date/Time: Sunday, May 21, 2017 15:55 - CONCLUSION: Negative. No venous thrombosis of the left lower extremity. Ronni Nunez MD Tibia/Fibula X-Ray 05/21/17 1518 Signed Impressions: Service Date/Time: Sunday, May 21, 2017 15:36 - CONCLUSION: Intact left tibia and fibula. Ronni Nunez MD Ankle X-Ray 05/21/17 1518 Signed Impressions: Service Date/Time: Sunday, May 21, 2017 15:44 - CONCLUSION: No evidence of fracture. Naveed Wilks MD Lower Extremity CT 05/21/17 0000 Signed Impressions: Service Date/Time: Sunday, May 21, 2017 17:20 - CONCLUSION: No evidence of fracture. Naveed Wilks MD Knee X-Ray 05/21/17 0000 Signed Impressions: Service Date/Time: Sunday, May 21, 2017 14:28 - CONCLUSION: No evidence of fracture. Mild arthritic findings with mild medial compartment narrowing. Small joint effusion. Naveed Wilks MD PE at Discharge GENERAL: This is a obese, well-developed patient, in no apparent distress. SKIN: Warm and dry. Pale. HEENT: Normocephalic. Pupils equal round and reactive. Nose without bleeding. Airway patent. NECK: Trachea midline. CARDIOVASCULAR: Regular rate and rhythm without murmurs, gallops, or rubs. RESPIRATORY: Bilateral upper lobes clear. Diminished bases. No wheeze. GASTROINTESTINAL: Abdomen soft, non-tender, nondistended. Bowel Sounds normoactive x4. MUSCULOSKELETAL: Extremities without clubbing, cyanosis, or edema. NEUROLOGICAL: Awake and alert. Oriented to place, person. No focal neuro deficit. Moves all extremities. Hoarse speech. Pt update on day of discharge Follow-up visit status post fall, left knee pain, upper respiratory infection. Patient seen and examined today lying in bed. States she sees she is feeling a lot better. Patient is eating breakfast. and home care at the bedside. Discussed with patient, that patient is going home today after physical therapy. She will need physical therapy, occupational therapy at home to help her regain strength and gait. Denies pain and discomfort. Denies SOB/ dyspnea. Denies chest pain, palpitations, headaches, dizziness. Denies fevers, chills. Denies dysuria. Hospital Course Patient is a 81-year-old female with a history of COPD, atrial fibrillation on Coumadin, CAD s/p PTCA in the , HTN, HLD, DVT, hiatal hernia, Parkinson's disease, and hypothyroidism who presented to the ED 05/21/2017 after a fall at home with left knee pain, inability to ambulate. Patient has left leg pain possibly from a knee sprain, LLE ankle/tibia/fibula x-rays reviewed, negative. Left knee x-ray showed mild arthritic findings; mild medial compartment narrowing; small joint effusion. LLE CT negative for evidence of fracture. Patient had physical therapy for evaluation and treatment recommended rehabilitation placement however she does not qualify and physical therapy will be done at home. Tramadol when necessary to continue at home. Patient's H&H has been stable. She has chest congestion chest x-ray showed minimal left base atelectasis or scaring repeat chest x-ray has been negative for any infiltrates or consolidation. Continue with DuoNeb's. Improved aeration on bilateral upper lobes. Patient has completed and outpatient Cipro and steroids for respiratory infection prior to coming into the hospital. Continue with nebulization at home. Patient has A. fib and has been on Coumadin came in with supratherapeutic INR Coumadin has been held while she was hospitalized and restarted yesterday. Recent INR is 2.2. Restart Coumadin at 1 mg follow-up with PCP for INR monitoring and adjustments of Coumadin. Patient has nausea and vomiting apparently has been seeing GI at [facility] and started on Motilium at home she is being treated with Zofran in here and patient can restart home medications with Motilium continue with Carafate and PPI. Patient has met maximal benefits of hospitalization. Clinically stable for discharge. Patient will be followed by home care nurse division toll wire chief as per their request. She will have physical therapy/occupational therapy/respiratory therapy. Pt Condition on Discharge: Stable Discharge Disposition: Disch w/ Home Health Serv Discharge Time: > 30 minutes Discharge Instructions DIET: Follow Instructions for: Heart Healthy Diet Activities you can perform: Regular-No Restrictions Activities to Avoid: Driving Follow up Referrals: PCP Follow-up - 2 Weeks PCP Follow-up - 1 Week On Coumadin. INR Monitoring. New Medications: Walker/Youth/Folding (Walker/Youth/Folding) 1 Mis Mis EA .XX DIRECTED, #1 Warfarin (Coumadin) 1 Mg Tab 1 MG PO DAILY@16 for Blood Clot Prevention, #10 TAB [Albuterol-Ipratropium Neb] () 1 AMPULE NEBU 1 AMPULE NEB Q6HR WHILE AWAKE NEB for SOB/ Wheezing for 30 Days, #100 AMPULE Continued Medications: Albuterol 8.5 GM Inh (Proair Hfa 8.5 GM Inh) 90 Mcg/Act Aer 2 PUFF INH Q4-6H PRN for SHORTNESS OF BREATH, #1 INHALER 0 Refills 108 mcg/actuation Atenolol (Atenolol) 25 Mg Tab 25 MG PO DAILY for Blood Pressure Management, #30 TAB Beclomethasone Inh (Qvar Inh) 40 Mcg/Act Aero 2 PUFF INH BID for Asthma Management, #1 INHALER 0 Refills Carbidopa-Levodopa (Carbidopa-Levodopa) 25-250 Mg Tab 1 TAB PO QID for Parkinson Disease Mgmt, #90 TAB 0 Refills Folic Acid (Folic Acid) 0.4 Mg Tab 5 MG PO DAILY for Nutritional Supplement, TAB 0 Refills Furosemide (Furosemide) 20 Mg Tab 20 MG PO DAILY, #30 TAB 0 Refills Ipratropium-Albuterol Neb (Duoneb) 0.5-2.5 Mg/3 Ml Neb 1 NEBULE INH Q6HR NEB for Breathing Treatment, #120 NEBULE 0 Refills Levothyroxine (Levothyroxine) 50 Mcg Tab 50 MCG PO DAILY for Thyroid, #30 TAB 0 Refills Meclizine (Meclizine) 25 Mg Tab 25 MG PO TID PRN for VERTIGO, TAB 0 Refills Nitroglycerin SL (Nitroglycerin SL) 0.4 Mg Subl 0.4 MG SL DIRECTED PRN for CHEST PAIN, #100 TAB.SL 0 Refills ONE TABLET UNDER THE TONGUE NEEDED FOR CHEST PAIN, MAY REPEAT EVERY FIVE MINUTES FOR A TOTAL OF 3 DOSES OR CALL 911 IF NO RELIEF Ondansetron Odt (Ondansetron Odt) 4 Mg Tab 4 MG SL Q8HR PRN for Nausea/Vomiting, TAB 0 Refills Potassium Chloride ER (Potassium Chloride ER) 10 Meq Tab 10 MEQ PO TID for Electrolyte Replacement, #60 TAB 0 Refills Pregabalin (Lyrica) 100 Mg Cap 100 MG PO BID, #60 CAP 0 Refills Simvastatin (Zocor) 40 Mg Tab 40 MG PO DAILY for Cholesterol Management, #30 TAB 0 Refills Sucralfate (Sucralfate) 1 Gm Tab 1 GM PO TID for Duodenal ulcer, #90 TAB 0 Refills on empty stomach Sucralfate Liq (Carafate Liq) 1 Gm/10 Ml Susp 1 GM PO BID for Duodenal ulcer, #1200 ML 0 Refills on empty stomach Temazepam (Temazepam) 15 Mg Cap 15 MG PO HS PRN for INSOMNIA, #30 CAP 0 Refills Tramadol (Tramadol) 50 Mg Tab 50 MG PO Q8H PRN for PAIN, TAB 0 Refills [Motilium 10MG] () 10 MG PO BID Discontinued Medications: Warfarin (Warfarin) 2 Mg Tab 2 MG PO DAILY for Blood Clot Prevention, #30 TAB 0 Refills Jamar Contreras May 24, 2017 11:41
[2017-05-24] MEDS: MECLIZINE HCL 25 MG TAB PO PRN (13:15)
--- NOTE | 2017-05-24 16:03 | HHI.DCPOC ---
Discharge Care Plan Diagnosis: (1) COPD (chronic obstructive pulmonary disease) (2) Parkinson disease (3) Hypertension (4) Left knee pain (5) Fall Your Health Problems Are: Difficulty with ADL Exercise Tolerance Shortness of Breath Goals to Promote Your Health * To prevent worsening of your condition and complications * To maintain your health at the optimal level Directions to Meet Your Goals Take your medications as prescribed Follow your dietary instruction Follow activity as directed Keep your appointments as scheduled Take your immunizations and boosters as scheduled If your symptoms worsen call your PCP, if no PCP go to Urgent Care Center or Emergency Room Smoking is Dangerous to Your Health. Avoid second hand smoke Call the 24-hour hour crisis hotline for domestic abuse at Jamar Contreras May 24, 2017 16:03
[2017-05-24] MEDS ORDERED: PRAVASTATIN SOD 80 MG TAB PO SCH (21:00)
== END 2017-05-24 16:43 | disposition home or self-care (01) ==
LOC: NEPC 13:07 → NEDA 17:29 → NEPHCDU 18:45
PROVIDERS: ADMIT Hospitalist; ATTEND Hospitalist
DX: M25.562 Pain in left knee (principal); J44.9 Chronic obstructive pulmonary disease, unspecified; I48.91 Unspecified atrial fibrillation; I10 Essential (primary) hypertension; I25.10 Atherosclerotic heart disease of native coronary artery without angina pectoris; E78.00 Pure hypercholesterolemia, unspecified; E78.5 Hyperlipidemia, unspecified; E03.9 Hypothyroidism, unspecified; J98.11 Atelectasis; G20 Parkinson's disease; J06.9 Acute upper respiratory infection, unspecified; K44.9 Diaphragmatic hernia without obstruction or gangrene; I25.2 Old myocardial infarction; R79.1 Abnormal coagulation profile; Z79.01 Long term (current) use of anticoagulants; Z86.73 Personal history of transient ischemic attack (TIA), and cerebral infarction without residual deficits; Z87.891 Personal history of nicotine dependence; Z90.710 Acquired absence of both cervix and uterus; Z98.61 Coronary angioplasty status; W18.30XA Fall on same level, unspecified, initial encounter; Y92.009 Unspecified place in unspecified non-institutional (private) residence as the place of occurrence of the external cause; R11.2 Nausea with vomiting, unspecified
CPT/HCPCS: 71045; 73564; 73590; 73610; 73700; 80048; 80053; 81001; 85025; 85610; 93005; 93971; 94640; 94664; 96361; 96374; 96375; 96376; 97162; 97167; 97530; 99285; G0378; G8987; G8988; J2270; J2405; J7030